=== PATIENT | male | born 1970 | race Caucasian/White ===

== ENCOUNTER 2016-11-05 10:16 | Inpatient (IN) | payer MEDICAID, OTHER ==
--- NOTE | 2016-11-05 10:14 | EDPHY ---
H & P Constitutional: Initial Vital Signs Temperature (C) 37.1 C 11/05/16 10:26 Heart Rate 75 11/05/16 10:26 Respiratory Rate 20 11/05/16 10:26 Blood Pressure 136/93 H 11/05/16 10:26 O2 Sat (%) 85 L 11/05/16 10:26 O2 Delivery Mode Room Air O2 (L/minute) 2 Allergies/Adverse Reactions: amlodipine Allergy (Verified 11/05/16 10:41) celecoxib Allergy (Verified 11/05/16 10:41) doxycycline Allergy (Verified 11/05/16 10:41) efavirenz Allergy (Verified 11/05/16 10:42) gabapentin Allergy (Verified 11/05/16 10:42) latex Allergy (Verified 11/05/16 10:41) nortriptyline Allergy (Verified 11/05/16 10:42) NSAIDS (Non-Steroidal Anti-Inflamma Allergy (Verified 11/05/16 10:42) oats Allergy (Verified 11/05/16 10:42) Penicillins Allergy (Verified 11/05/16 10:43) prednisone Allergy (Verified 11/05/16 10:43) prochlorperazine Allergy (Verified 11/05/16 10:43) ragweed pollen Allergy (Verified 11/05/16 10:43) Home Medications: Medication Instructions Recorded ALBUTEROL SULFATE 11/05/16 Abacavir-Lamivudine 600-300 mg 11/05/16 Ascorbic Acid 11/05/16 Atazanavir Sulfate 11/05/16 Atenolol 11/05/16 CHOLECALCIFEROL 11/05/16 Cortef 11/05/16 Coumadin 11/05/16 DIAZEPAM 11/05/16 Dulera 200 Mcg/5 Mcg Inhaler 11/05/16 FENOFIBRATE 11/05/16 FLUDROCORTISONE ACETATE 11/05/16 FOLIC ACID 11/05/16 Ferrous Sulfate 11/05/16 Flomax 11/05/16 Insulin NPH Human 11/05/16 Lasix 11/05/16 Lovenox 11/05/16 NOVOLIN N 11/05/16 Norvir 11/05/16 [place] 3 500 Softgel 11/05/16 Polyethylene Glycol/Polyvinyl 11/05/16 Potassium Chloride 11/05/16 Pravastatin Sodium 11/05/16 Roxicodone 11/05/16 SUMAtriptan 11/05/16 Spiriva Inhaler (RX) 11/05/16 Topamax 11/05/16 Tylenol 11/05/16 Zantac 11/05/16 Zofran Odt 11/05/16 Zoloft 100mg (*) 11/05/16 fentaNYL 11/05/16 Medical Decision Making ED Course/Re-evaluation: CHIEF COMPLAINT: Abdominal pain, cellulitis, bilateral leg swelling HISTORY OF PRESENT ILLNESS: This patient is a HIV+ immunocompromised ( hydrocortisone, glucocorticoids) 45 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 He presents with a growing area of erythema with associated burning pain across his abdomen over the past two weeks. He also complains of increasing swelling to both feet over the past month. He notes acute groin pain worse on the right side with associated hematuria over the past few days. He has not identified any alleviating factors for his complaints. He denies fever or chills. Medical history also includes CKD stage III, kidney stones, and prior episodes of cellulitis. He is on Coumadin for chronic DVTs. REVIEW OF SYSTEMS: A 10 point review of systems was performed and is negative with the exception of the elements mentioned in the history of present illness. PHYSICAL EXAM: HR 75, BP 136/93, O2 Sat 85, RR 20. Temp noted General Appearance: Alert, well hydrated, appropriate, and non-toxic appearing. Head: Atraumatic without scalp tenderness or obvious injury Eyes: Pupils equal, round, reactive to light and accommodation, EOMI, no trauma , no injection. Ears: Clear bilaterally, no perforation, normal landmarks Nose: Atraumatic, no rhinorrhea, clear. Throat: There is no erythema or exudates, no lesions, normal tonsils, mucus membranes moist. Neck: Supple, 2+ carotid upstroke, nontender, no lymphadenopathy. Respiratory: No retractions, no distress, no wheezes, and no accessory muscle use. Lungs are clear to auscultation bilaterally. Cardiovascular: Regular rate and rhythm, no murmurs, rubs, or gallops. Bilateral carotid, radial, dorsalis pedis, and posterior tibial pulses intact. Good capillary refill all extremities. Peripheral edema bilaterally. Gastrointestinal: Abdomen is soft, nontender, non-distended, no masses, no rebound, no guarding, no peritoneal signs. Musculoskeletal: Normal active ROM of all extremities, atraumatic. Neurological: Alert, appropriate, and interactive. The patient has normal DTRs and non-focal cranial nerves, motor, sensory, and cerebellar exam. Skin: Good turgor, no nodules on palpation. Cellulitic abdomen. Past medical history: Kidney stones, Reece's disease, HIV positive, diabetes, chronic kidney disease stage III, Frankfort's syndrome, chronic DVTs, thyroid disease, hypertension, asthma, seizure disorder Past surgical history: Appendectomy, brain surgery, hip replacement, knee surgery, ankle surgery, hand/elbow surgery Family history: Non-contributory Social history: Never smoked. Lives in [place]. DIFFERENTIAL DIAGNOSIS: The differential diagnosis for the patient's abdominal groin pain included but was not limited to appendicitis, cholecystitis, hernias , testicular torsion, gastritis, and urinary tract infection. MEDICAL DECISION MAKING: This immunocompromised 45 year old male presents with multiple complaints all of which will require further workup following hospital admission. He has a large area of cellulitis spreading diffusely across his abdomen with tenderness and erythema. He has worsening peripheral edema that "nobody has been able to figure out." He reports groin pain but denies pain to his flank, fever, or chills. He tells me that he had a CT of his abdomen two weeks ago. In investigating his history, it appears that his CT was conducted on 11/03, two days prior to arrival. Labs and UA from that day were obtained and reviewed as well. Given this, will not proceed with CT today. Will proceed with labs and UA. 2gm IV Ancef administered for cellulitis. 1119: Labs reviewed: Over-therapeutic on INR, elevated lactate, hypokalemic, normal kidney function, chronic anemia. UA reviewed: RBC present in urine. Will proceed with non-contrast CT of abdomen and pelvis. 1127: Consultation with hospitalist. Patient is accepted by Dr. Chu to med/ surg. 1154: CT is positive for kidney stone per Dr. Platt, radiology. - Data Points Laboratory Results: Laboratory Results 11/05/16 10:17 11/05/16 10:17 11/05/16 11/05/16 11/05/16 10:35 10:17 10:17 WBC RBC Hgb Hct MCV MCH MCHC RDW Plt Count MPV Neut % (Auto) Lymph % (Auto) Union % (Auto) Eos % (Auto) Baso % (Auto) Nucleat RBC Rel Count Absolute Neuts (auto) Absolute Lymphs (auto) Absolute Monos (auto) Absolute Eos (auto) Absolute Basos (auto) Absolute Nucleated RBC Immature Gran % Immature Gran # PT 43.7 SEC H SEC (12.0-15.0) INR 4.51 H (0.83-1.16) APTT 45.3 SEC H SEC (23.0-38.0) VBG Lactic Acid 3.4 mmol/L H mmol/L (0.7-2.1) Sodium 142 mEq/L mEq/L (134-144) Potassium 2.8 mEq/L L mEq/L (3.5-5.2) Chloride 100 mEq/L mEq/L (97-110) Carbon Dioxide 33 mEq/l H mEq/l (22-31) Anion Gap 9 mEq/L mEq/L (8-16) BUN 28 mg/dL H mg/dL (7-23) Creatinine 0.8 mg/dL mg/dL (0.7-1.3) Estimated GFR > 60 Glucose 260 mg/dL H mg/dL (70-100) Calcium 9.1 mg/dL mg/dL (8.5-10.4) Total Bilirubin 1.2 mg/dL mg/dL (0.1-1.4) Conjugated Bilirubin 0.4 mg/dL mg/dL (0.0-0.5) Unconjugated Bilirubin 0.8 mg/dL mg/dL (0.0-1.1) AST 33 IU/L IU/L (17-59) ALT 48 IU/L IU/L (21-72) Alkaline Phosphatase 130 IU/L H IU/L (38-126) Total Protein 6.1 g/dL L g/dL (6.3-8.2) Albumin 3.7 g/dL g/dL (3.5-5.0) Lipase 92.0 IU/L IU/L (23-300) Urine Color Urine Appearance Urine pH Ur Specific [place] Urine Protein Urine Ketones Urine Blood Urine Nitrate Urine Bilirubin Urine Urobilinogen Ur Leukocyte Esterase Urine RBC Urine WBC Ur Epithelial Cells Urine Glucose 11/05/16 11/05/16 10:17 10:10 WBC 4.80 10^3/uL 10^3/uL (3.80-9.50) RBC 3.53 10^6/uL L 10^6/uL (4.40-6.38) Hgb 11.0 g/dL L g/dL (13.7-17.5) Hct 32.8 % L % (40.0-51.0) MCV 92.9 fL fL (81.5-99.8) MCH 31.2 pg pg (27.9-34.1) MCHC 33.5 g/dL g/dL (32.4-36.7) RDW 15.6 % H % (11.5-15.2) Plt Count 101 10^3/uL L 10^3/uL (150-400) MPV 10.7 fL fL (8.7-11.7) Neut % (Auto) 86.6 % H % (39.3-74.2) Lymph % (Auto) 7.7 % L % (15.0-45.0) Union % (Auto) 4.0 % L % (4.5-13.0) Eos % (Auto) 0.0 % L % (0.6-7.6) Baso % (Auto) 0.0 % L % (0.3-1.7) Nucleat RBC Rel Count 0.0 % % (0.0-0.2) Absolute Neuts (auto) 4.16 10^3/uL 10^3/uL (1.70-6.50) Absolute Lymphs (auto) 0.37 10^3/uL L 10^3/uL (1.00-3.00) Absolute Monos (auto) 0.19 10^3/uL L 10^3/uL (0.30-0.80) Absolute Eos (auto) 0.00 10^3/uL L 10^3/uL (0.03-0.40) Absolute Basos (auto) 0.00 10^3/uL L 10^3/uL (0.02-0.10) Absolute Nucleated RBC 0.00 10^3/uL 10^3/uL (0-0.01) Immature Gran % 1.7 % H % (0.0-1.1) Immature Gran # 0.08 10^3/uL 10^3/uL (0.00-0.10) PT INR APTT VBG Lactic Acid Sodium Potassium Chloride Carbon Dioxide Anion Gap BUN Creatinine Estimated GFR Glucose Calcium Total Bilirubin Conjugated Bilirubin Unconjugated Bilirubin AST ALT Alkaline Phosphatase Total Protein Albumin Lipase Urine Color COLORLESS Urine Appearance CLEAR Urine pH 6.0 (5.0-7.5) Ur Specific [place] 1.005 (1.002-1.030) Urine Protein NEGATIVE (NEGATIVE) Urine Ketones NEGATIVE (NEGATIVE) Urine Blood 2+ H (NEGATIVE) Urine Nitrate NEGATIVE (NEGATIVE) Urine Bilirubin NEGATIVE (NEGATIVE) Urine Urobilinogen NEGATIVE EU EU (0.2-1.0) Ur Leukocyte Esterase NEGATIVE (NEGATIVE) Urine RBC 50-182 /hpf H /hpf (0-3) Urine WBC 3-5 /hpf H /hpf (0-3) Ur Epithelial Cells NONE SEEN /lpf /lpf (NONE-1+) Urine Glucose 1+ H (NEGATIVE) Medications Given: Discontinued Medications Hydromorphone HCl (Dilaudid) 1 mg IVP EDNOW ONE Stop: 11/05/16 10:29 Last Admin: 11/05/16 11:10 Dose: 1 mg Cefazolin Sodium/Dextrose (Ancef 2 Gm (Premix)) 100 mls @ 200 mls/hr IV EDNOW ONE PRN Reason: Protocol Stop: 11/05/16 11:04 Last Admin: 11/05/16 11:24 Dose: 200 mls Departure - Departure Disposition: [facility] In[facility] Acute Clinical Impression: Cellulitis, abdominal wall, Hypokalemia, Chronic anemia Condition: Fair Report Scribed for: Magdaleno Tinajero Report Scribed by: Italia Tolbert Date of Report: 11/05/16 Time of Report: 10:22
[2016-11-05] MEDS ORDERED: HYDROmorphONE/DILAUDID 1 MG/ML SYR IVP ONE (10:28)
[2016-11-05] MEDS ORDERED: ceFAZolin 2 GM/DEXTROSE 100 ML IV ONE (10:35)
[2016-11-05 10:56] LABS: % IMMATURE GRANULYOCYTES 1.7 % (0.0-1.1); ABSOLUTE IMMATURE GRANULOCYTES 0.08 10^3/uL (0.00-0.10); ADD DIFF? NO; ADD MORPH? NO; ADD SCAN? NO; ATYPICAL LYMPHOCYTE FLAG 0 (0-99); FRAGMENT RBC FLAG 0 (0-99); HEMATOCRIT 32.8 % (40.0-51.0); LEFT SHIFT FLG 30 (0-99); LIPEMIA HEMOLYSIS FLAG 80 (0-99); MEAN CELL HEMOGLOBIN 31.2 pg (27.9-34.1); MEAN CELL HEMOGLOBIN CONCENTR. 33.5 g/dL (32.4-36.7); MEAN CELL VOLUME 92.9 fL (81.5-99.8); MEAN PLATELET VOLUME 10.7 fL (8.7-11.7); PLATELET CLUMPS FLAG 0 (0-99); PLATELET COUNT 101 10^3/uL (150-400); RED BLOOD CELL COUNT 3.53 10^6/uL (4.40-6.38); RED CELL DISTRIBUTION WIDTH 15.6 % (11.5-15.2)
[2016-11-05 10:59] LABS: COLOR COLORLESS; LEUKOCYTE ESTERASE,URINE NEGATIVE (NEGATIVE); NITRITE,URINE NEGATIVE (NEGATIVE)
[2016-11-05 11:08] LABS: INR 4.51 (0.83-1.16); PROTIME(PATIENT) 43.7 SEC (12.0-15.0)
[2016-11-05 11:09] LABS: APTT 45.3 SEC (23.0-38.0)
[2016-11-05 11:09] LABS: RBC,URINE 50-182 /hpf (0-3)
[2016-11-05 11:11] LABS: ALANINE AMINOTRANSFERASE 48 IU/L (21-72); ALBUMIN 3.7 g/dL (3.5-5.0); ALKALINE PHOSPHATASE 130 IU/L (38-126); ANION GAP 9 mEq/L (8-16); ASPARTATE AMINOTRANSFERASE 33 IU/L (17-59); BILIRUBIN,TOTAL 1.2 mg/dL (0.1-1.4); BILIRUBIN-CONJUGATED 0.4 mg/dL (0.0-0.5); BILIRUBIN-UNCONJUGATED 0.8 mg/dL (0.0-1.1); CALCIUM 9.1 mg/dL (8.5-10.4); CARBON DIOXIDE 33 mEq/l (22-31); CHLORIDE 100 mEq/L (97-110); CREATININE 0.8 mg/dL (0.7-1.3); GLOMERULAR FILTRATION RATE > 60; GLUCOSE 260 mg/dL (70-100); POTASSIUM 2.8 mEq/L (3.5-5.2); SODIUM 142 mEq/L (134-144); TOTAL PROTEIN 6.1 g/dL (6.3-8.2)
[2016-11-05 11:48] LABS: LACGHOST ORDER
[2016-11-05] MEDS ORDERED: ONDANSETRON DISINTEGRATING 4 MG TAB PO PRN (13:51)
[2016-11-05] MEDS ORDERED: ACETAMINOPHEN 325 MG TAB PO PRN (13:51)
[2016-11-05] MEDS ORDERED: BISACODYL 10 MG SUPP PR PRN (13:51)
[2016-11-05] MEDS ORDERED: DEXAMETHASONE 4 MG/ML VIAL IM PRN ×2 (13:51→15:11)
[2016-11-05] MEDS ORDERED: SUMAtriptan 50 MG TAB PO PRN (13:51)
[2016-11-05] MEDS ORDERED: DIAZEPAM 5 MG TAB PO PRN (13:51)
[2016-11-05] MEDS ORDERED: HYOSCYAMINE SULFATE 0.125 MG TAB PO PRN (13:51)
[2016-11-05] MEDS ORDERED: DIAZEPAM PR PRN ×2 (13:51→15:11)
[2016-11-05] MEDS ORDERED: ALBUTEROL 60 PUFFS/8 GM MDI IH PRN (13:51)
[2016-11-05] MEDS ORDERED: ALBUTEROL 3 ML DEYVIAL IH PRN (13:51)
[2016-11-05] MEDS ORDERED: MAGNESIUM HYDROXIDE 30 ML UDCUP PO PRN (13:56)
[2016-11-05] MEDS ORDERED: ALBUTEROL 200 PUFFS/18 GM MDI IH PRN (14:24)
[2016-11-05] MEDS ORDERED: LIDO/EPI 1% **Not for Epidural 20 ML MDV IF ONE (14:30)
[2016-11-05] MEDS ORDERED: NS 1,000 ML IV ONE (15:10)
[2016-11-05] MEDS ORDERED: POTASSIUM CL 20 MEQ TAB PO ONE (15:14)
[2016-11-05] MEDS ORDERED: D50W 25 GM/50 ML SYR IVP PRN (15:26)
[2016-11-05] MEDS: oxyCODONE IR 5 MG TAB PO PRN (15:31)
--- NOTE | 2016-11-05 16:12 | CPEKG ---
Heart Rate: 65 RR Interval: 923 P-R Interval: 164 QRSD Interval: 86 QT Interval: 424 QTC Interval: 441 P Wheeler: 54 QRS Wheeler: 42 T Wave Wheeler: 66 EKG Severity - NORMAL ECG - EKG Impression: SINUS RHYTHM EKG Impression: INFERIOR Q WAVE IN LEAD III NOTED AND A NORMAL VARIANT Electronically Signed By: Venkat Pena 05-Nov-2016 18:51:26
--- NOTE | 2016-11-05 16:17 | GHP ---
[f rep st] HISTORY AND PHYSICAL DATE OF ADMISSION: 11/05/2016 CHIEF COMPLAINT: Multiple complaints. HISTORY OF PRESENT ILLNESS: This is a 45-year-old man with multiple medical problems who is immunos uppressed, who presents with multiple complaints. Abdominal cellulitis: This started a few days ago, described as painful burning. He has had chills at home for about the last month. It has been spreading quite rapidly. He tells me he has a histo ry of MRSA. He has had hematuria for about 3 weeks. He was recently admitted to [facility] and told th at he has urinary stones. He passed multiple of them. He was discharged to a SNF from there. He i s on Flomax. He presented to the ED with some pain in his abdomen, which also radiated to his groin . He has had lower extremity swelling. This started a few days before the stone issue. He has had no further evaluation for this, he tells me. He has also had an episode of chest pain. This is described as left-sided radiating to his arm with some associated numbness. He has never had this before. He still feels a mild amount of chest dis comfort. PAST MEDICAL/SURGICAL HISTORY: 1. HIV diagnosed in 2002. Last CD4 count was 121 with a negative viral load. 2. History of [place]'s disease, on chronic steroids. 3. Diabetes mellitus. 4. History of recurrent DVTs, on lifelong Coumadin. 5. PTSD. MEDICATIONS: Please see medication reconciliation. ALLERGIES: Multiple allergies, including amlodipine, celecoxib, doxycycline, Savarine, gabapentin, latex, nortriptyline, NSAIDs, oats, penicillin, prednisone, prochlorperazine and ragweed pollen. FAMILY HISTORY: He does not have Reece's in the family. SOCIAL HISTORY: He was discharged from [facility] about 2 weeks ago. He has been staying at a SNF since then. REVIEW OF SYSTEMS: A 10-point review of systems is conducted and is negative, except per HPI. PHYSICAL EXAMINATION: VITAL SIGNS: Blood pressure is 120/77, heart rate 68, respiration rate 18, s aturating 94% on 2 L, temperature is 36.7. GENERAL: The patient is a pleasant man, sitting in a wh eelchair, comfortable, in no acute distress. HEENT: Shows him to be normocephalic, atraumatic. CA RDIOVASCULAR: Regular rate and rhythm. No murmurs, rubs, or gallops. PULMONARY: Lungs clear to a uscultation bilaterally. ABDOMEN: Shows him to be soft, nontender, nondistended. SKIN: On his ab domen shows a large area of erythema over the right side of his abdomen. It is warm. It is quite i ndurated. I do not appreciate any fluctuance. It is very tender to palpation. : Shows no Gatica . NEUROLOGIC: Shows him to be alert and oriented x3. He has a nonfocal neurologic exam. PSYCHIAT HUSAM: Shows normal mood and affect. EXTREMITIES: Shows 3+ bilateral lower extremity pitting edema. LABS: Notable for sodium 142, potassium 2.8. Normal white count of 4, absolute lymphocytes are 0.3 7. INR is 4.5. Lactate 3.4. Urinalysis shows 50-182 red blood cells. DATA: 1. I reviewed his chart, including Dr. Tinajero's note. 2. I personally reviewed and interpreted his CTA that shows a calculus in the proximal to mid right ureter. IMPRESSION AND PLAN: This is a 45-year-old man with multiple acute and chronic issues. 1. Cellulitis in an immunocompromised man. History of methicillin resistant Staphylococcus aureus. Will provide him with vancomycin. I appreciate endurance, but no fluctuance. I do not think he n eeds surgical debridement at this time, though it may be necessary. I have consulted Infectious Dis ease as well. 2. Chest pain. He has multiple risk factors for coronary disease, though it is atypical. Will rul e him out with troponins, place him on telemetry, check an EKG as well as a chest x-ray. We will li jacques get a Lexiscan tomorrow. 3. Lower extremity edema, deserves an echocardiogram. Will also check LFTs. Will check lower extr emity ultrasounds to rule out DVT, though I note that he is supratherapeutic and think this unlikely . 4. Hematuria with right ureteral stone. Hematuria seems pretty significant. He does not seem to b e retaining urine at this point. We will continue Flomax, IV hydration and follow this clinically. Will involve Urology if hematuria does not improve. 5. Human immunodeficiency virus positive. Last CD4 was 121 with negative viral load. I will ask En Mccray, one of the Infectious Disease physicians to see him and assist with this as well as kaveh chen. 6. History of Reece's disease. Will continue steroids. 7. Diabetes mellitus. Will continue his NPH, check fingersticks and give him a sliding scale insul in protocol. 8. Lactic acidosis. Have written for him to get 1 L of fluid then will recheck his lactate. 9. Hypokalemia. Replete. 10. History of deep venous thrombosis with supratherapeutic INR. Will hold his warfarin samuel rodríguez recheck his INR tomorrow. 11. Code status is full. /[id number]/MODL
[2016-11-05] MEDS: VANCOMYCIN 1.5 GM in D5W 250 ML IV SCH (16:56)
[2016-11-05] MEDS ORDERED: HYDROCORTISONE 10 MG TAB PO ONE (17:30)
[2016-11-05] MEDS ORDERED: INSULIN NPH HUMAN 100 UNITS/ML SYRINGE SC SCH (18:00)
[2016-11-05] MEDS: PRAVASTATIN SODIUM 40 MG TAB PO SCH (18:02)
[2016-11-05] MEDS: INSULIN LISPRO 100 UNIT/ML SC SCH (18:03)
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
[2016-11-05] MEDS ORDERED: ATAZANAVIR SULFATE 300 MG PO SCH (21:00)
[2016-11-05] MEDS ORDERED: NON-FORMULARY NEW DRUG (Pravastatin Sodium [Pravastatin Sodium] 80 MG) PO SCH (21:00)
[2016-11-05] MEDS ORDERED: morphINE SR 30 MG TAB PO SCH (21:00)
[2016-11-05] MEDS ORDERED: ABACAVIR LAMIVUDINE PO SCH (21:00)
[2016-11-05] MEDS ORDERED: FENOFIBRATE 160 MG PO SCH (21:00)
[2016-11-05] MEDS ORDERED: NON-FORMULARY NEW DRUG (Ranitidine Hcl [Zantac] 300 MG) PO SCH (21:00)
[2016-11-05] MEDS ORDERED: PRAVASTATIN SODIUM 40 MG TAB PO SCH (21:00)
[2016-11-05] MEDS: SERTRALINE HCL 100 MG TAB PO SCH (21:29)
[2016-11-05] MEDS: FENOFIBRATE 145 MG TAB PO SCH (21:29)
[2016-11-05] MEDS: ATENOLOL 25 MG TAB PO SCH (21:29)
[2016-11-05] MEDS: FAMOTIDINE 20 MG TAB PO SCH (21:29)
[2016-11-05] MEDS: DIAZEPAM 5 MG TAB PO SCH (21:43)
[2016-11-05] MEDS: Mometasone/Formoterol [Dulera 200 Mcg/5 Mcg Inhaler] 2 PUFFS IH SCH (21:43)
[2016-11-06] MEDS: VANCOMYCIN 1.5 GM in D5W 250 ML IV SCH ×2 (04:29→16:12)
[2016-11-06 05:13] LABS: % IMMATURE GRANULYOCYTES 2.9 % (0.0-1.1); ABSOLUTE IMMATURE GRANULOCYTES 0.09 10^3/uL (0.00-0.10); ADD DIFF? NO; ADD MORPH? NO; ADD SCAN? NO; ATYPICAL LYMPHOCYTE FLAG 0 (0-99); FRAGMENT RBC FLAG 0 (0-99); HEMATOCRIT 26.3 % (40.0-51.0); HEMOGLOBIN 8.7 g/dL (13.7-17.5); LEFT SHIFT FLG 30 (0-99); LIPEMIA HEMOLYSIS FLAG 80 (0-99); MEAN CELL HEMOGLOBIN 31.5 pg (27.9-34.1); MEAN CELL HEMOGLOBIN CONCENTR. 33.1 g/dL (32.4-36.7); MEAN CELL VOLUME 95.3 fL (81.5-99.8); MEAN PLATELET VOLUME 10.4 fL (8.7-11.7); PLATELET CLUMPS FLAG 0 (0-99); PLATELET COUNT 73 10^3/uL (150-400); RED BLOOD CELL COUNT 2.76 10^6/uL (4.40-6.38); RED CELL DISTRIBUTION WIDTH 15.9 % (11.5-15.2)
[2016-11-06 05:57] LABS: INR 3.58 (0.83-1.16); PROTIME(PATIENT) 36.3 SEC (12.0-15.0)
[2016-11-06 06:23] LABS: ALANINE AMINOTRANSFERASE 43 IU/L (21-72); ALBUMIN 2.7 g/dL (3.5-5.0); ALKALINE PHOSPHATASE 86 IU/L (38-126); ANION GAP 3 mEq/L (8-16); ASPARTATE AMINOTRANSFERASE 22 IU/L (17-59); BILIRUBIN,TOTAL 0.5 mg/dL (0.1-1.4); CALCIUM 8.5 mg/dL (8.5-10.4); CARBON DIOXIDE 31 mEq/l (22-31); CHLORIDE 103 mEq/L (97-110); CREATININE 0.6 mg/dL (0.7-1.3); GLOMERULAR FILTRATION RATE > 60; GLUCOSE 275 mg/dL (70-100); POTASSIUM 3.5 mEq/L (3.5-5.2); SODIUM 137 mEq/L (134-144); TOTAL PROTEIN 4.7 g/dL (6.3-8.2)
[2016-11-06 06:33] LABS: TROPONIN I 0.025 ng/mL (0-0.034)
[2016-11-06] MEDS ORDERED: HYDROCORTISONE 15 MG PO SCH (08:00)
[2016-11-06] MEDS ORDERED: DIAZEPAM 5 MG TAB PO PRN (08:29)
[2016-11-06] MEDS ORDERED: ALBUTEROL 200 PUFFS/18 GM MDI IH PRN (08:45)
[2016-11-06] MEDS: INSULIN LISPRO 100 UNIT/ML SC SCH ×4 (08:49→17:58)
[2016-11-06] MEDS: INSULIN NPH HUMAN 100 UNITS/ML SYRINGE SC SCH ×3 (08:50→17:59)
[2016-11-06] MEDS: HYDROCORTISONE 10 MG TAB PO SCH ×3 (08:51→16:13)
[2016-11-06] MEDS: DIAZEPAM 5 MG TAB PO SCH ×3 (08:52→21:11)
[2016-11-06] MEDS: ATENOLOL 25 MG TAB PO SCH ×2 (08:52→21:11)
[2016-11-06] MEDS: FUROSEMIDE 40 MG TAB PO SCH (08:53)
[2016-11-06] MEDS: FLUDROCORTISONE ACETATE 0.1 MG TAB PO SCH (08:53)
[2016-11-06] MEDS: TAMSULOSIN HCL 0.4 MG CAP PO SCH (08:54)
[2016-11-06] MEDS: FERROUS SULFATE 325 MG TAB PO SCH (08:54)
[2016-11-06] MEDS: ASCORBIC ACID 500 MG TAB PO SCH (08:54)
[2016-11-06] MEDS ORDERED: HYDROCORTISONE PO SCH (09:00)
[2016-11-06] MEDS ORDERED: TIOTROPIUM INHALER 18 MCG/DOSE 5 DOSE/MDI IH SCH (09:00)
[2016-11-06] MEDS ORDERED: RITONAVIR 100 MG TAB PO SCH (09:00)
[2016-11-06] MEDS ORDERED: TRIUMEQ PO SCH (09:00)
[2016-11-06] MEDS ORDERED: POTASSIUM CL 10 MEQ TAB PO SCH (09:00)
--- NOTE | 2016-11-06 09:43 | HOSPPROG ---
Hospitalist Progress Note Assessment/Plan: # abd wall cellulitis - vanc per ID, appreciate assistance # LE edema - echo pending - cont lasix # chest pain - Joy today # hematuria, non-obstructive renal stone - no evidence of CASAS # DVT, on warfarin, supratherapeutic INR: he relates that he was off warfarin recently for unknown reason - cont to hold warfarin # HIV - ID changing regimen # allen's - cont steroids, no evidence of crisis # DM2, hyperglycemic - increase nocturnal NPH # lactic acidosis - resolved Subjective: abd feels better; less hematuria today; edema slightly better Objective: Vital Signs Temp Pulse Resp BP Pulse Ox 36.9 C 56 L 20 128/79 H 97 11/06/16 07:38 11/06/16 07:38 11/06/16 07:38 11/06/16 07:38 11/06/16 07:38 Laboratory Results 11/06/16 04:29 11/06/16 04:29 11/05/16 11/06/16 11/07/16 05:59 05:59 05:59 Intake Total 480 Output Total 1050 Balance -570 PT 36.3 SEC (12.0-15.0) H 11/06/16 04:29 INR 3.58 (0.83-1.16) H 11/06/16 04:29 chart reviewed - appreciate Dr Mccray's consult LE US reviewed - Physical Exam Constitutional: chronically ill appearing Cardiovascular: regular rate and rhythym, no murmur, rub, or gallop Respiratory: no respiratory distress, no rales or rhonchi, clear to auscultation Gastrointestinal: normoactive bowel sounds, soft, non-tender abdomen, no palpable masses Skin: other (erythema on abd less red (pink today), still warm but better; less induration) ICD10 Worksheet Patient Problems: Problems Problem Status Onset Cellulitis, abdominal wall Acute Hypokalemia Acute Chronic anemia Acute
[2016-11-06] MEDS: Mometasone/Formoterol [Dulera 200 Mcg/5 Mcg Inhaler] 2 PUFFS IH SCH (10:11)
[2016-11-06] MEDS: POLYETHYLENE GLYCOL 3350 17 GM PKT PO SCH (10:20)
--- NOTE | 2016-11-06 10:41 | ECHO ---
[id number] + + [address] : : [place] [address] : : [phone] + Adult Echocardiographic Report + -------+ :Name: JONO MARTIN RStudy Date: 11/06/2016 08:14 AM : : Hospital Admission Number: [id number] Locati on: 390: :: 1970 Gender: Male Height: 677 in : :Age: 45 yrs Race: WH Weight: 227 lb : :Reason For Study: edema : : BSA: 11.4 mete rs2 : :History: edema : + -------+ MMode/2D Measurements \T\ Calculations IVSd: 1.3 cm RVDd: 2.8 cm FS: 47.2 % Ao root diam: LVPWd: 1.4 cm LVIDd: 4.4 cm EDV(Teich): 3.9 cm LVIDs: 2.3 cm 88.2 ml LA dimension: ESV(Teich): 4.2 cm 18.7 ml EF(Teich): 78.8 % LVLd ap4: 10.2 cm SV(MOD-sp4): EDV(MOD-sp4): 122.0 ml 162.0 ml LVLs ap4: 8.5 cm ESV(MOD-sp4): 40.0 ml EF(MOD-sp4): 75.3 % Normal Measurement Values: + + :LVIDd (3.5-5.7cm) IVSd (0.6-1.1cm) LVPWd (0.6-1.1cm) Aortic Root (2.0-3.7cm)Left Atrium (1.5-4.0cm): :LV Vol(d) (76-115ml) LV Vol(s) (29-48ml) Ejec Fraction (50-65%)PV Yonathan (0.6- 1.2m/s) TV Yonathan (0.4-1.0m/s) : :MV E Yonathan (0.8-1.0m/s)MV A Yonathan (0.3-1.0m/s)LVOT Yonathan (0.7-1.2m/s) Asc Ao Yonathan ( 0.9-1.8m/s) : + + Doppler Measurements \T\ Calculations MV E max yonathan: Ao V2 max: LV V1 max: PA V2 max: 66.1 cm/sec 138.8 cm/sec 121.9 cm/sec 92.3 cm/sec MV A max yonathan: Ao max P.7 mmHgLV V1 max PG: PA max P.9 cm/sec 5.9 mmHg 3.4 mmHg MV E/A: 1.5 MV dec time: 0.26 sec Left Ventricle The left ventricle is normal in size and function. There is mild concentric left ventricular hypertrophy. Ejection Fraction = 70-75%. Assessment of diastolic function is equivocal. No regional wall motion abnormalities noted. Right Ventricle The right ventricle is normal in size and function. Atria The left atrial size is normal. Right atrial size is normal. Mitral Valve The mitral valve is normal in structure and function. There is no mitral valve stenosis. There is trace mitral regurgitation. Tricuspid Valve The tricuspid valve is normal in structure and function. There is no tricuspid stenosis. There is trace tricuspid regurgitation. Aortic Valve The aortic valve is trileaflet. Mild Aortic Valve Calcification. There is no aortic stenosis. There is no aortic insufficiency. Pulmonic Valve The pulmonic valve is not well visualized. Great Vessels The aortic root is normal size. Pericardium/Pleural There is no pericardial effusion. There is a fat pad seen. Conclusion A two-dimensional transthoracic echocardiogram with M-mode and Doppler was performed. There is mild concentric left ventricular hypertrophy. The left ventricle is normal in size and function. Ejection Fraction = 70-75%. There is trace mitral regurgitation. There is trace tricuspid regurgitation. No prior echo Final Reading Physician: Dr Iram De Los Santos electronically signed on 11/06/2016 10:39 AM Ordering Physician: Ramón Chu Performed By: Dai Lindsey
[2016-11-06] MEDS ORDERED: REGADENOSON 0.4 MG/5 ML SYR IVP ONE (11:56)
--- NOTE | 2016-11-06 12:40 | CPR ---
[f rep st] NONINVASIVE CARDIAC PROCEDURE REPORT DATE OF PROCEDURE: 11/06/2016 PROCEDURE PERFORMED: Lexiscan nuclear stress test. ORDERING PHYSICIAN: Ramón Chu MD, hospitalist. REASON FOR TEST: Chest discomfort. PROCEDURE: Resting EKG shows a regular sinus rhythm with a rate of 65. No ischemic changes. No ar rhythmias noted. Resting blood pressure 124/82, oxygen saturation 94%, heart rate 64. Lexiscan portion: Lexiscan was injected rapidly, followed by saline flush. Cardiolite was then inj ected, followed by saline flush. Peak heart rate 87, blood pressure 110/80, oxygen saturation 93%. He had flushing sensation after the injection. There were no EKG changes. Recovery: He spontaneously recovered. Flushing subsided. Resting EKG remained stable with no isch emic changes or arrhythmias. Resting blood pressure 126/80, resting heart rate 87, oxygen saturatio n 98%. At this time, he currently is stable for nuclear imaging. /[id number]/MODL
[2016-11-06] MEDS: FAMOTIDINE 20 MG TAB PO SCH ×2 (13:36→21:11)
[2016-11-06] MEDS: FLUCONAZOLE 100 MG TAB PO SCH (13:36)
[2016-11-06] MEDS: ONDANSETRON 4 MG/2 ML VIAL IVP PRN (14:51)
[2016-11-06] MEDS: TRIUMEQ PO SCH ×3 (15:28→16:31)
--- NOTE | 2016-11-06 17:04 | PCMIDPN ---
Assessment/Plan: Assessment/Plan: * Abdominal wall cellulitis: Clinically improved today with less intense erythema (reviewed with Dr. Chu who saw patient both today and yesterday). 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 Anticipate slow resolution with concomitant obesity. Will assess vancomycin trough. * HIV: Will modify current treatment regimen of epzicom and boosted atazanavir to triumeq (epzicom + tivicay) given potential for nephrolithiasis with atazanavir. Counseling regarding new regimen provided by myself and Hannah De La Rosa NP. * DVT: Management by hospitalist service. * Nephrolithiasis: See above discussion. 11/06/16 17:00 11/06/16 17:05 11/06/16 17:05 Subjective: Patient with less abdominal wall tenderness. Objective: Vital Signs Temp Pulse Resp BP Pulse Ox 37.2 C 72 16 141/81 H 93 11/06/16 16:00 11/06/16 16:00 11/06/16 16:00 11/06/16 16:00 11/06/16 16:00 Laboratory Results 11/06/16 04:29 11/06/16 04:29 11/05/16 11/06/16 11/07/16 05:59 05:59 05:59 Intake Total 480 Output Total 1050 1000 Balance -570 -1000 Vancomycin # 2 Blood cultures x2 no growth to date - Physical Exam General Appearance: alert, no apparent distress EENT: No scleral icterus, No thrush Respiratory: lungs clear, No respiratory distress Cardiac/Chest: regular rate, rhythm Extremities: pedal edema (2+ right) Abdomen: other (Faint erythema with warmth and mild tenderness along right lower quadrant abdominal wall; 2 hemorrhagic foci 1 of which is lateral in 1 medial; no fluctuance; mild induration superiorly) Skin: No embolic lesions ICD10 Worksheet Patient Problems: Problems Problem Status Onset Cellulitis, abdominal wall Acute Chronic anemia Acute Hypokalemia Acute
[2016-11-06] MEDS: PRAVASTATIN SODIUM 40 MG TAB PO SCH ×2 (17:45→17:59)
[2016-11-06] MEDS: CALCIUM CARB W/VIT D 500 MG TAB PO SCH (21:10)
[2016-11-06] MEDS: SERTRALINE HCL 100 MG TAB PO SCH (21:10)
[2016-11-06] MEDS: FENOFIBRATE 145 MG TAB PO SCH (21:10)
[2016-11-07 03:51] LABS: ADD DIFF? YES; ADD MORPH? NO; ADD SCAN? NO; ATYPICAL LYMPHOCYTE FLAG 30 (0-99); FRAGMENT RBC FLAG 0 (0-99); HEMATOCRIT 28.8 % (40.0-51.0); HEMOGLOBIN 9.8 g/dL (13.7-17.5); LEFT SHIFT FLG 40 (0-99); LIPEMIA HEMOLYSIS FLAG 90 (0-99); MEAN CELL HEMOGLOBIN 31.7 pg (27.9-34.1); MEAN CELL VOLUME 93.2 fL (81.5-99.8); MEAN PLATELET VOLUME 10.2 fL (8.7-11.7); PLATELET CLUMPS FLAG 0 (0-99); PLATELET COUNT 77 10^3/uL (150-400); RED BLOOD CELL COUNT 3.09 10^6/uL (4.40-6.38); RED CELL DISTRIBUTION WIDTH 15.9 % (11.5-15.2)
[2016-11-07 03:59] LABS: INR 1.84 (0.83-1.16); PROTIME(PATIENT) 21.3 SEC (12.0-15.0)
[2016-11-07 04:06] LABS: ANION GAP 4 mEq/L (8-16); CALCIUM 8.7 mg/dL (8.5-10.4); CARBON DIOXIDE 31 mEq/l (22-31); CHLORIDE 106 mEq/L (97-110); CREATININE 0.7 mg/dL (0.7-1.3); GLOMERULAR FILTRATION RATE > 60; GLUCOSE 127 mg/dL (70-100); SODIUM 141 mEq/L (134-144)
[2016-11-07 04:35] LABS: PLATELET ESTIMATE DECREASED (ADEQ)
[2016-11-07] MEDS: VANCOMYCIN 1.5 GM in D5W 250 ML IV SCH ×2 (04:36→16:55)
[2016-11-07 04:41] LABS: MACROCYTES 1+; MICROCYTES 1+
[2016-11-07] MEDS ORDERED: POTASSIUM CL 20 MEQ TAB PO ONE (05:42)
[2016-11-07] MEDS: INSULIN LISPRO 100 UNIT/ML SC SCH ×3 (07:42→19:11)
[2016-11-07] MEDS: ASCORBIC ACID 500 MG TAB PO SCH (08:53)
[2016-11-07] MEDS: CALCIUM CARB W/VIT D 500 MG TAB PO SCH ×2 (08:53→21:21)
[2016-11-07] MEDS: FAMOTIDINE 20 MG TAB PO SCH ×2 (08:53→21:21)
[2016-11-07] MEDS: TAMSULOSIN HCL 0.4 MG CAP PO SCH (08:54)
[2016-11-07] MEDS: ATENOLOL 25 MG TAB PO SCH ×2 (08:54→21:21)
[2016-11-07] MEDS: FLUCONAZOLE 100 MG TAB PO SCH (08:54)
[2016-11-07] MEDS: DIAZEPAM 5 MG TAB PO SCH ×3 (08:54→21:22)
[2016-11-07] MEDS: FERROUS SULFATE 325 MG TAB PO SCH (08:54)
[2016-11-07] MEDS: HYDROCORTISONE 10 MG TAB PO SCH ×3 (08:56→16:55)
[2016-11-07] MEDS: FLUDROCORTISONE ACETATE 0.1 MG TAB PO SCH (08:58)
[2016-11-07] MEDS ORDERED: POTASSIUM CL 10 MEQ TAB PO SCH (09:00)
[2016-11-07] MEDS: INSULIN NPH HUMAN 100 UNITS/ML SYRINGE SC SCH ×2 (09:03→17:54)
[2016-11-07] MEDS: POLYETHYLENE GLYCOL 3350 17 GM PKT PO SCH (09:52)
[2016-11-07] MEDS: FUROSEMIDE 40 MG TAB PO SCH (11:56)
--- NOTE | 2016-11-07 13:57 | HOSPPROG ---
Hospitalist Progress Note Assessment/Plan: # abd wall cellulitis - has a hx of MRSA - vanc per ID, appreciate assistance # LE edema - echo ok; improving with lasix - cont lasix # hypokalemia - increase klor-con # chest pain - teddy negative # hematuria, non-obstructive renal stone - hematuria resolved # DVT, on warfarin, INR slightly low: he relates that he was off warfarin recently for unknown reason - restart warfarin tonight # mild thrombocytopenia - recheck tomorrow # HIV - ID changing regimen # allen's - cont steroids, no evidence of crisis # DM2, hyperglycemic - nocturnal NPH increased, glucs better # lactic acidosis - resolved Subjective: no hematuria; abd less tender; swelling better Objective: Vital Signs Temp Pulse Resp BP Pulse Ox 36.8 C 62 16 105/65 93 11/07/16 11:20 11/07/16 11:20 11/07/16 11:20 11/07/16 11:20 11/07/16 11:20 Laboratory Results 11/07/16 03:40 11/07/16 03:40 11/06/16 11/07/16 11/08/16 05:59 05:59 05:59 Intake Total 480 Output Total 1050 2600 475 Balance -570 -2600 -475 PT 21.3 SEC (12.0-15.0) H D 11/07/16 03:40 INR 1.84 (0.83-1.16) H 11/07/16 03:40 - Physical Exam Constitutional: no apparent distress, appears nourished, obese, No unkempt Cardiovascular: regular rate and rhythym, no murmur, rub, or gallop Respiratory: no respiratory distress, no rales or rhonchi, clear to auscultation Gastrointestinal: normoactive bowel sounds, other (R lower abd erythema/warmth better, still TTP) ICD10 Worksheet Patient Problems: Problems Problem Status Onset Cellulitis, abdominal wall Acute Hypokalemia Acute Chronic anemia Acute
--- NOTE | 2016-11-07 16:05 | PCMIDPN ---
Assessment/Plan: Assessment/Plan: * Abdominal wall cellulitis: Continued decrease in intensity of erythema which is now more dependent along lateral abdominal wall. No focal fluctuance although some areas of induration along striae which may represent panniculitis. Continue vancomycin. Trough appropriate with stable renal function. * HIV: Continue Triumeq. Initial dose tolerated well. * DVT: Management by hospitalist service. * Nephrolithiasis: Anti-retroviral therapy modified given risk for nephrolithiasis with atazanavir. 11/07/16 16:02 Subjective: Patient complains of right-sided abdominal wall pain. Did not have any issues taking Triumeq. Objective: Vital Signs Temp Pulse Resp BP Pulse Ox 37.2 C 66 14 114/85 H 94 11/07/16 14:53 11/07/16 14:53 11/07/16 14:53 11/07/16 14:53 11/07/16 14:53 Laboratory Results 11/07/16 03:40 11/07/16 03:40 11/06/16 11/07/16 11/08/16 05:59 05:59 05:59 Intake Total 480 Output Total 1050 2600 4015 Balance -922 -2602 -5058 Vancomycin # 3 Blood cultures x2 no growth Laboratory Tests 11/07/16 03:40 Vancomycin Trough 11.8 - Physical Exam General Appearance: alert, no apparent distress, obese EENT: No thrush Cardiac/Chest: regular rate, rhythm Abdomen: tender (Right lower abdominal wall with faint erythema, warmth and tenderness with scattered hemorrhagic foci; abdominal striae with some focal areas of induration; erythema most intense laterally where dependent from lying on his side) ICD10 Worksheet Patient Problems: Problems Problem Status Onset Cellulitis, abdominal wall Acute Chronic anemia Acute Hypokalemia Acute
[2016-11-07] MEDS: WARFARIN SODIUM 5 MG TAB PO SCH (16:54)
[2016-11-07] MEDS: PRAVASTATIN SODIUM 40 MG TAB PO SCH (17:53)
[2016-11-07] MEDS: TRIUMEQ PO SCH (17:55)
[2016-11-07] MEDS: FENOFIBRATE 145 MG TAB PO SCH (21:21)
[2016-11-07] MEDS: SERTRALINE HCL 100 MG TAB PO SCH (21:21)
[2016-11-07] MEDS: ONDANSETRON 4 MG/2 ML VIAL IVP PRN (21:30)
[2016-11-08] MEDS: VANCOMYCIN 1.5 GM in D5W 250 ML IV SCH ×2 (04:02→15:59)
[2016-11-08 05:04] LABS: % IMMATURE GRANULYOCYTES 2.9 % (0.0-1.1); ABSOLUTE IMMATURE GRANULOCYTES 0.11 10^3/uL (0.00-0.10); ADD DIFF? NO; ADD MORPH? NO; ADD SCAN? NO; ATYPICAL LYMPHOCYTE FLAG 0 (0-99); FRAGMENT RBC FLAG 0 (0-99); HEMATOCRIT 31.7 % (40.0-51.0); HEMOGLOBIN 10.7 g/dL (13.7-17.5); LEFT SHIFT FLG 30 (0-99); LIPEMIA HEMOLYSIS FLAG 90 (0-99); MEAN CELL HEMOGLOBIN 31.3 pg (27.9-34.1); MEAN CELL HEMOGLOBIN CONCENTR. 33.8 g/dL (32.4-36.7); MEAN CELL VOLUME 92.7 fL (81.5-99.8); MEAN PLATELET VOLUME 9.7 fL (8.7-11.7); PLATELET CLUMPS FLAG 0 (0-99); PLATELET COUNT 95 10^3/uL (150-400); RED BLOOD CELL COUNT 3.42 10^6/uL (4.40-6.38); RED CELL DISTRIBUTION WIDTH 16.1 % (11.5-15.2)
[2016-11-08 05:24] LABS: INR 1.34 (0.83-1.16); PROTIME(PATIENT) 16.6 SEC (12.0-15.0)
[2016-11-08 05:26] LABS: ANION GAP 7 mEq/L (8-16); CALCIUM 8.9 mg/dL (8.5-10.4); CARBON DIOXIDE 30 mEq/l (22-31); CHLORIDE 105 mEq/L (97-110); CREATININE 0.9 mg/dL (0.7-1.3); GLOMERULAR FILTRATION RATE > 60; GLUCOSE 148 mg/dL (70-100); POTASSIUM 2.8 mEq/L (3.5-5.2); SODIUM 142 mEq/L (134-144)
[2016-11-08] MEDS ORDERED: POTASSIUM CL 20 MEQ TAB PO ONE (06:34)
[2016-11-08] MEDS ORDERED: PROTOCOL POTASSIUM 1 DOSE MISC PRN (06:43)
[2016-11-08] MEDS: INSULIN LISPRO 100 UNIT/ML SC SCH ×3 (07:52→16:17)
--- NOTE | 2016-11-08 08:51 | HOSPPROG ---
Hospitalist Progress Note Assessment/Plan: # abd wall cellulitis - has a hx of MRSA; overall improving - vanc per ID, appreciate assistance; vanc trough ok - high risk med needing monitoring # LE edema - echo ok; much better - decrease lasix to 20 daily # hypokalemia - increase klor-con again today; lasix decreased # chest pain - teddy negative # hematuria, non-obstructive renal stone - hematuria resolved # DVT, on warfarin, INR low: - start lovenox (plts noted), cont warf # mild thrombocytopenia - recheck tomorrow # HIV - ID changing regimen # allen's - cont steroids, no evidence of crisis # DM2, hyperglycemic - nocturnal NPH increased, glucs better # lactic acidosis - resolved Subjective: tired this morning; pain on abd better; swelling better Objective: Vital Signs Temp Pulse Resp BP Pulse Ox 37.1 C 71 16 106/63 93 11/08/16 07:27 11/08/16 07:27 11/08/16 07:27 11/08/16 07:27 11/08/16 07:27 Laboratory Results 11/08/16 04:30 11/08/16 04:30 11/07/16 11/08/16 11/09/16 05:59 05:59 05:59 Intake Total 940 Output Total 2600 4125 425 Balance -2600 -3185 -425 PT 16.6 SEC (12.0-15.0) H 11/08/16 04:30 INR 1.34 (0.83-1.16) H 11/08/16 04:30 - Physical Exam Constitutional: obese Cardiovascular: regular rate and rhythym, no murmur, rub, or gallop Respiratory: no respiratory distress, no rales or rhonchi, clear to auscultation Gastrointestinal: normoactive bowel sounds, other (erythema better; slightly TTP ), No ascites, No guarding, No rebound, No distension ICD10 Worksheet Patient Problems: Problems Problem Status Onset Cellulitis, abdominal wall Acute Hypokalemia Acute Chronic anemia Acute
[2016-11-08] MEDS: ASCORBIC ACID 500 MG TAB PO SCH (09:08)
[2016-11-08] MEDS: POTASSIUM CL 10 MEQ TAB PO SCH ×2 (09:09→21:38)
[2016-11-08] MEDS: CALCIUM CARB W/VIT D 500 MG TAB PO SCH ×2 (09:09→21:36)
[2016-11-08] MEDS: ATENOLOL 25 MG TAB PO SCH (09:09)
[2016-11-08] MEDS: POLYETHYLENE GLYCOL 3350 17 GM PKT PO SCH (09:10)
[2016-11-08] MEDS: TAMSULOSIN HCL 0.4 MG CAP PO SCH (09:11)
[2016-11-08] MEDS: HYDROCORTISONE 10 MG TAB PO SCH ×3 (09:11→15:59)
[2016-11-08] MEDS: FERROUS SULFATE 325 MG TAB PO SCH (09:13)
[2016-11-08] MEDS: FLUCONAZOLE 100 MG TAB PO SCH (09:13)
[2016-11-08] MEDS: FAMOTIDINE 20 MG TAB PO SCH ×2 (09:13→21:36)
[2016-11-08] MEDS: FUROSEMIDE 40 MG TAB PO SCH (09:13)
[2016-11-08] MEDS: FLUDROCORTISONE ACETATE 0.1 MG TAB PO SCH (09:13)
[2016-11-08] MEDS: DIAZEPAM 5 MG TAB PO SCH ×3 (09:13→21:36)
[2016-11-08] MEDS: ENOXAPARIN 100 MG/ML SYR SC SCH ×2 (09:20→21:39)
[2016-11-08] MEDS: INSULIN NPH HUMAN 100 UNITS/ML SYRINGE SC SCH ×2 (09:22→17:50)
[2016-11-08] MEDS: oxyCODONE IR 5 MG TAB PO PRN ×2 (09:38→21:37)
[2016-11-08 10:02] LABS: POTASSIUM 2.8 mEq/L (3.5-5.2)
[2016-11-08 15:12] LABS: POTASSIUM 3.4 mEq/L (3.5-5.2)
[2016-11-08] MEDS: TRIUMEQ PO SCH (15:59)
[2016-11-08] MEDS: WARFARIN SODIUM 5 MG TAB PO SCH (16:01)
--- NOTE | 2016-11-08 17:26 | PCMIDPN ---
Assessment/Plan: Assessment: 1. Abdominal wall cellulitis. Erythema seems to have regressed substantially around the scarring areas of the right lower quadrant. It is seemed to regress to a point that is tender and warm and possibly fluctuant. I think it would be reasonable to ultrasound the area to see if there is a drainable collection. If so we will obtain general surgery consult. 2. HIV. Regimen changed to couple of days ago. Patient is tolerating currently. Plan: 1. Continue IV vancomycin. 2. Ultrasound right lower quadrant of abdomen to evaluate for subcutaneous collection needing drainage. 11/08/16 18:35 Subjective: Patient is resting comfortably in his hospital bed. He complains of point tenderness in the right lower quadrant associated with subcutaneous inflammation and tension. Tolerating vancomycin well. No fevers or chills. Objective: Vancomycin # 4 Vital Signs Temp Pulse Resp BP Pulse Ox 36.9 C 75 14 117/73 93 11/08/16 16:00 11/08/16 16:00 11/08/16 16:00 11/08/16 16:00 11/08/16 16:00 Laboratory Results 11/08/16 04:30 11/08/16 14:32 11/07/16 11/08/16 11/09/16 05:59 05:59 05:59 Intake Total 940 Output Total 3608 1111 624 Balance -260 -3972 -850 - Physical Exam General Appearance: WD/WN, alert, obese, non-toxic Respiratory: lungs clear, normal breath sounds, No respiratory distress Cardiac/Chest: regular rate, rhythm, No tachycardia Abdomen: soft, other (Point area of redness, induration and fluctuance right lower quadrant), No non-tender, No rebound, No mass Skin: normal color, warm/dry, No rash Neuro/Psych: alert, normal mood/affect, oriented x 3 ICD10 Worksheet Patient Problems: Problems Problem Status Onset Cellulitis, abdominal wall Acute Chronic anemia Acute Hypokalemia Acute
[2016-11-08] MEDS: PRAVASTATIN SODIUM 40 MG TAB PO SCH (17:49)
[2016-11-08] MEDS ORDERED: POTASSIUM CL 10 MEQ TAB PO ONE (20:31)
[2016-11-08] MEDS: FENOFIBRATE 145 MG TAB PO SCH (21:36)
[2016-11-08] MEDS: SERTRALINE HCL 100 MG TAB PO SCH (21:37)
[2016-11-08] MEDS: ONDANSETRON DISINTEGRATING 4 MG TAB PO PRN (21:39)
[2016-11-09] MEDS: ATENOLOL 25 MG TAB PO SCH ×3 (01:55→20:24)
[2016-11-09] MEDS: ONDANSETRON DISINTEGRATING 4 MG TAB PO PRN ×2 (04:18→08:24)
[2016-11-09] MEDS: VANCOMYCIN 1.5 GM in D5W 250 ML IV SCH ×2 (04:18→18:25)
[2016-11-09] MEDS: oxyCODONE IR 5 MG TAB PO PRN ×4 (04:19→20:25)
[2016-11-09 05:23] LABS: HEMATOCRIT 30.5 % (40.0-51.0); MEAN CELL HEMOGLOBIN CONCENTR. 32.8 g/dL (32.4-36.7); MEAN CELL VOLUME 94.4 fL (81.5-99.8); RED BLOOD CELL COUNT 3.23 10^6/uL (4.40-6.38); RED CELL DISTRIBUTION WIDTH 16.2 % (11.5-15.2)
[2016-11-09 05:44] LABS: INR 1.88 (0.83-1.16); PROTIME(PATIENT) 21.7 SEC (12.0-15.0)
[2016-11-09 06:37] LABS: ANION GAP 4 mEq/L (8-16); CALCIUM 8.8 mg/dL (8.5-10.4); CARBON DIOXIDE 26 mEq/l (22-31); CHLORIDE 109 mEq/L (97-110); CREATININE 1.2 mg/dL (0.7-1.3); GLOMERULAR FILTRATION RATE > 60; GLUCOSE 117 mg/dL (70-100); POTASSIUM 3.5 mEq/L (3.5-5.2); SODIUM 139 mEq/L (134-144)
[2016-11-09] MEDS ORDERED: POTASSIUM CL 10 MEQ TAB PO ONE (08:34)
--- NOTE | 2016-11-09 08:53 | HOSPPROG ---
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 Abdominal wall cellulitis/abscess, planned I&D today. Hematuria and nonobstructive renal stone, hematuria resolved with lowering his INR. Lower extremity edema, significantly improved with Lasix. Possible discharge tomorrow. # abd wall abscess/cellulitis - has a hx of MRSA; overall improving - vanc per ID, appreciate assistance - discussed with Dr Coronado - he will eval for I&D today # LE edema - echo ok; much better - decrease lasix to 20mg PO daily # hypokalemia - better today with lower lasix dose and increased klor-con - cont Kcl 20 bid - recheck tomorrow # chest pain - teddy negative # hematuria, non-obstructive renal stone - hematuria resolved - outpatient urology f/u # DVT, on warfarin slightly subtherapeuric INR - cont warfarin - hold lovenox today # mild thrombocytopenia - recheck tomorrow # HIV - ID changed regimen # allen's - cont steroids, no evidence of crisis # DM2, hyperglycemic - nocturnal NPH increased, glucs better # lactic acidosis - resolved Subjective: edema much better; abd better but still TTP Objective: Vital Signs Temp Pulse Resp BP Pulse Ox 36.7 C 78 18 97/57 L 95 11/09/16 08:00 11/09/16 08:00 11/09/16 08:00 11/09/16 08:00 11/09/16 08:00 Laboratory Results 11/09/16 05:01 11/09/16 05:01 11/08/16 11/09/16 11/10/16 05:59 05:59 05:59 Intake Total 940 800 Output Total 4125 1400 Balance -3185 -600 PT 21.7 SEC (12.0-15.0) H 11/09/16 05:01 INR 1.88 (0.83-1.16) H 11/09/16 05:01 abd ultrasound reviewed - Physical Exam Constitutional: no apparent distress, appears nourished Cardiovascular: regular rate and rhythym, no murmur, rub, or gallop Respiratory: no respiratory distress, no rales or rhonchi, clear to auscultation Gastrointestinal: normoactive bowel sounds, soft, non-tender abdomen, other (R abd with small mildly fluctuant nodules) ICD10 Worksheet Patient Problems: Problems Problem Status Onset Cellulitis, abdominal wall Acute Hypokalemia Acute Chronic anemia Acute
[2016-11-09] MEDS: HYDROCORTISONE 10 MG TAB PO SCH ×3 (09:46→18:25)
[2016-11-09] MEDS: FLUCONAZOLE 100 MG TAB PO SCH (09:47)
[2016-11-09] MEDS: FERROUS SULFATE 325 MG TAB PO SCH (09:47)
[2016-11-09] MEDS: FAMOTIDINE 20 MG TAB PO SCH ×2 (09:48→20:24)
[2016-11-09] MEDS: TAMSULOSIN HCL 0.4 MG CAP PO SCH (09:48)
[2016-11-09] MEDS: FUROSEMIDE 40 MG TAB PO SCH (09:49)
[2016-11-09] MEDS: FLUDROCORTISONE ACETATE 0.1 MG TAB PO SCH (09:49)
[2016-11-09] MEDS: CALCIUM CARB W/VIT D 500 MG TAB PO SCH (09:50)
[2016-11-09] MEDS: DIAZEPAM 5 MG TAB PO SCH ×3 (09:50→20:24)
[2016-11-09] MEDS: POTASSIUM CL 10 MEQ TAB PO SCH ×2 (09:51→20:24)
[2016-11-09] MEDS: ASCORBIC ACID 500 MG TAB PO SCH (09:51)
[2016-11-09] MEDS: INSULIN LISPRO 100 UNIT/ML SC SCH ×3 (09:52→18:43)
[2016-11-09] MEDS: INSULIN NPH HUMAN 100 UNITS/ML SYRINGE SC SCH ×2 (09:56→18:43)
[2016-11-09] MEDS: POLYETHYLENE GLYCOL 3350 17 GM PKT PO SCH (09:58)
--- NOTE | 2016-11-09 10:34 | PCMIDPN ---
Assessment/Plan: 1. Abdominal wall cellulitis with 3 small abscesses noted on ultrasound: Patient to go to the operating room for incision and drainage of the superficial abscesses today, as he does not want this done at the bedside given pain intolerance. I have ordered a Gram stain and culture. I told the patient that he would likely be here over the weekend until we can figure out what to do with his antibiotics once we have an organism. He may need a course of IV antibiotics, but hopefully can change to oral. Of note, the patient states that he does not tolerate doxycycline, but does tolerate Bactrim. Continue vancomycin as is. 2. HIV: Continue Triumeq. Please note that 1 of the medications in this drug causes decreased tubular secretion of creatinine, which does not affect the overall GFR. Suspect this is the reason for his creatinine bump to 1.2. Also of note, will change calcium and vitamin-D to once daily, as calcium , magnesium, aluminum binders can bind the active site of Dolutegravir, rendering it inactive. Subjective: In good spirits. Loquacious. Eager to have the 3 small subcutaneous abscesses drained. Objective: Vancomycin 1.5 g IV q.12 hours day 4. Triumeq 1 tab p.o. daily Fluconazole 100 mg p.o. daily Afebrile Vital Signs Temp Pulse Resp BP Pulse Ox 36.7 C 78 18 97/57 L 95 11/09/16 08:00 11/09/16 09:53 11/09/16 08:00 11/09/16 09:53 11/09/16 08:00 Laboratory Results 11/09/16 05:01 11/09/16 05:01 11/08/16 11/09/16 11/10/16 05:59 05:59 05:59 Intake Total 940 800 Output Total 4125 1400 Balance -3185 -600 No new microbiology - Physical Exam General Appearance: no apparent distress, obese Respiratory: lungs clear Abdomen: other (Visible quarter-sized superficial abscess with fluctuance and erythema. This is tender. He also has 2 other areas that are nodular on exam in the same area. Significant abdominal striae from steroids noted.) ICD10 Worksheet Patient Problems: Problems Problem Status Onset Cellulitis, abdominal wall Acute Chronic anemia Acute Hypokalemia Acute
[2016-11-09] MEDS ORDERED: BUPIVACAINE 0.5% 30 ML SDV ONE (14:30)
[2016-11-09] MEDS ORDERED: BACITRACIN 50,000 UNITS/10 ML SYR IRR ONE (14:31)
[2016-11-09] MEDS ORDERED: POLYMYXIN B SULFATE 500,000 UNIT/10 ML SYR IRR ONE (14:31)
--- NOTE | 2016-11-09 14:44 | GCON ---
[f rep st] CONSULTATION DATE OF CONSULTATION: 11/09/2016 HISTORY OF PRESENT ILLNESS: This is a 45-year-old gentleman who presents to the hospital for abdominal wall abscess and cellulitis. The patient has a known history of HIV. He is MRCP positive by report, and had previous I and D of the area performed 2 weeks ago at an outside hospital. The patient has abdominal pain on the right side of the anterior abdominal wall that is radiating to his groin. The patient was started on vancomycin therapy. 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 PAST SURGICAL HISTORY: None. ALLERGIES: Patient is allergic to amlodipine, celecoxib, doxycycline, Saverine , gabapentin, latex, nortriptyline, NSAIDs, penicillin, prednisone and oats. FAMILY HISTORY: Noncontributory, reviewed. SOCIAL HISTORY: The patient denies alcohol, drug or tobacco use. He is living in a nursing care facility at this time. REVIEW OF SYSTEMS: Significant for abdominal pain, abdominal cellulitis. PHYSICAL EXAMINATION: VITAL SIGNS: The patient is alert, oriented, but very nervous. He had been hypotensive earlier today, but his blood pressure is now 118/74, heart rate of 80, respiratory rate of 18, saturating 93% on room air with a temperature of 36.8. GENERAL: He is alert, oriented to person, place, time. LUNGS: Clear. HEART: Regular heart tones. ABDOMEN: Obese. He has three areas of abscess formation tubercle, lessened in the mid part of the abdomen. One in the lower abdomen is not fluctuant. EXTREMITIES: Without edema. He has 2+ over 2+ femoral and dorsalis pedis pulses. SKIN: He has no skin changes. No rashes. No signs acute sepsis. LABORATORY STUDIES: White blood cell count of 3.38, hemoglobin of 10, hematocrit of 30, platelet count of 92. His chemistries show sodium 139, potassium 3.5, chloride 109, bicarb 26, BUN 22, creatinine 1.2. Glucose is 117. Coag study shows his INR today is 1.88 consistent with Coumadin use. MEDICATIONS: Medications were reviewed. A complete list is noted in the chart. IMPRESSION: Abdominal wall abscesses. Ultrasound was also reviewed. Agree with of findings of multiple subcutaneous abscesses in the abdominal wall, likely secondary to immunosuppression and chronic steroid use, as well as HIV. The risks, benefits and alternatives to bedside I and D versus surgical I and D have been outlined to the patient. We will plan to go to the operating room today with monitored anesthesia care for risk of rebleeding and also patient anxiety, and chronic pain. /[id number]/MODL MTDD
[2016-11-09] MEDS ORDERED: SCOPOLAMINE HYDROBROMIDE 1.5 MG PATCH TD ONE (15:49)
[2016-11-09] MEDS ORDERED: MIDAZOLAM 2 MG/2 ML VIAL ONE (15:59)
[2016-11-09] MEDS ORDERED: fentaNYL 100 MCG/2 ML INJ ONE ×2 (16:03→16:56)
[2016-11-09] MEDS ORDERED: methylPREDNISolone SOD SUCC 125 MG/2 ML VIAL ONE (16:03)
[2016-11-09] MEDS ORDERED: ROCURONIUM 50 MG/5 ML VIAL ONE (16:03)
[2016-11-09] MEDS ORDERED: PROPOFOL 200 MG/20 ML VIAL ONE (16:03)
[2016-11-09] MEDS ORDERED: SUGAMMADEX SODIUM 200 MG/2 ML VIAL IVP ONE (16:04)
[2016-11-09] MEDS ORDERED: ONDANSETRON 4 MG/2 ML VIAL ONE (16:04)
[2016-11-09] MEDS ORDERED: LIDOCAINE 2% 5 ML SDV ONE (16:04)
--- NOTE | 2016-11-09 17:41 | POSTOPPROG ---
Post Op Note Date of Operation: 11/09/16 Surgeon: Bolivar Coronado Brush Trimming Machine Setter: none Anesthesia: GET(General Endotracheal) Pre-op Diagnosis: abdominal abscessx3 Post-op Diagnosis: same Procedure: Incision and drainage Findings: minimal pus induration Inf/Abcess present in the surg proc area at time of surgery?: Yes Depth: Superfical (Skin SQ) EBL: Minimal Specimen(s): cultures to microbiology
[2016-11-09] MEDS: TRIUMEQ PO SCH (18:44)
[2016-11-09] MEDS: PRAVASTATIN SODIUM 40 MG TAB PO SCH (18:44)
--- NOTE | 2016-11-09 19:30 | GOP ---
[f rep st] OPERATIVE REPORT DATE OF OPERATION: SURGEON: Bolivar Coronado MD ANESTHESIA: General endotracheal anesthesia. ANESTHESIOLOGIST: Iban Rivera MD PREOPERATIVE DIAGNOSIS: Abdominal wall infection. POSTOPERATIVE DIAGNOSIS: Abdominal wall infection. Abscess x3. PROCEDURE PERFORMED: Incision and drainage. FINDINGS: Induration and small amount of pus in the abscesses. SPECIMENS: Culture to permanent pathology. 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 DESCRIPTION OF PROCEDURE: The patient was brought to the operating room. After induction of endotr acheal anesthesia, the abdomen was prepped with chlorhexidine and draped sterilely. A time-out proc edure was performed according to institutional standards. Local anesthetic 0.5% Marcaine with epine phrine was infused in skin and subcutaneous tissues. Incision was made over the largest abscess in a transverse fashion and this is cultured for bacteria. The area is then broken up with loculations and a 2nd abscess just inferior to this was broken up at the same time. Hemostasis was assured. T he area was irrigated copiously with saline and packed with iodoform gauze. A 3rd abscess that is n oted in the right flank was also treated with incision and drainage with irrigation and packing in a similar fashion. The patient tolerates the procedure well. Dressing was applied. The patient jameel kened, extubated and taken to the recovery room in stable condition. No immediate complications. /[id number]/MODL
[2016-11-09] MEDS ORDERED: HYDROCORTISONE 10 MG TAB PO ONE (20:22)
[2016-11-09] MEDS: SERTRALINE HCL 100 MG TAB PO SCH (20:24)
[2016-11-09] MEDS: FENOFIBRATE 145 MG TAB PO SCH (20:24)
[2016-11-09] MEDS: WARFARIN SODIUM 5 MG TAB PO SCH (20:25)
[2016-11-09] MEDS ORDERED: INSULIN LISPRO 100 UNIT/ML SC ONE (23:30)
[2016-11-10] MEDS: VANCOMYCIN 1.5 GM in D5W 250 ML IV SCH ×2 (04:14→17:27)
[2016-11-10] MEDS: oxyCODONE IR 5 MG TAB PO PRN ×3 (04:21→19:42)
[2016-11-10 05:35] LABS: INR 2.2 (0.83-1.16); PROTIME(PATIENT) 24.6 SEC (12.0-15.0)
[2016-11-10 05:39] LABS: % IMMATURE GRANULYOCYTES 1.9 % (0.0-1.1); ABSOLUTE IMMATURE GRANULOCYTES 0.06 10^3/uL (0.00-0.10); ADD DIFF? NO; ADD MORPH? NO; ADD SCAN? NO; ATYPICAL LYMPHOCYTE FLAG 0 (0-99); FRAGMENT RBC FLAG 0 (0-99); HEMATOCRIT 28.6 % (40.0-51.0); HEMOGLOBIN 9.5 g/dL (13.7-17.5); LEFT SHIFT FLG 30 (0-99); LIPEMIA HEMOLYSIS FLAG 80 (0-99); MEAN CELL HEMOGLOBIN 30.8 pg (27.9-34.1); MEAN CELL HEMOGLOBIN CONCENTR. 33.2 g/dL (32.4-36.7); MEAN CELL VOLUME 92.9 fL (81.5-99.8); PLATELET CLUMPS FLAG 0 (0-99); PLATELET COUNT 94 10^3/uL (150-400); RED BLOOD CELL COUNT 3.08 10^6/uL (4.40-6.38); RED CELL DISTRIBUTION WIDTH 15.8 % (11.5-15.2)
[2016-11-10 05:52] LABS: ANION GAP 9 mEq/L (8-16); CALCIUM 8.7 mg/dL (8.5-10.4); CARBON DIOXIDE 24 mEq/l (22-31); CHLORIDE 106 mEq/L (97-110); CREATININE 1.4 mg/dL (0.7-1.3); GLOMERULAR FILTRATION RATE 55; GLUCOSE 312 mg/dL (70-100); POTASSIUM 4.2 mEq/L (3.5-5.2); SODIUM 139 mEq/L (134-144)
[2016-11-10] MEDS: INSULIN LISPRO 100 UNIT/ML SC SCH ×3 (09:31→20:30)
[2016-11-10] MEDS: INSULIN NPH HUMAN 100 UNITS/ML SYRINGE SC SCH ×2 (09:54→19:07)
[2016-11-10] MEDS: HYDROCORTISONE 10 MG TAB PO SCH ×3 (09:59→16:51)
[2016-11-10] MEDS: FUROSEMIDE 40 MG TAB PO SCH (10:01)
[2016-11-10] MEDS: ATENOLOL 25 MG TAB PO SCH ×2 (10:02→22:33)
[2016-11-10] MEDS: CALCIUM CARB W/VIT D 500 MG TAB PO SCH (10:03)
[2016-11-10] MEDS: ASCORBIC ACID 500 MG TAB PO SCH (10:04)
[2016-11-10] MEDS: FLUDROCORTISONE ACETATE 0.1 MG TAB PO SCH (10:04)
[2016-11-10] MEDS: FAMOTIDINE 20 MG TAB PO SCH ×2 (10:05→22:31)
[2016-11-10] MEDS: FERROUS SULFATE 325 MG TAB PO SCH (10:05)
[2016-11-10] MEDS: POTASSIUM CL 10 MEQ TAB PO SCH ×2 (10:08→22:31)
[2016-11-10] MEDS: FLUCONAZOLE 100 MG TAB PO SCH (10:08)
[2016-11-10] MEDS: DIAZEPAM 5 MG TAB PO SCH ×3 (10:09→22:32)
[2016-11-10] MEDS: TAMSULOSIN HCL 0.4 MG CAP PO SCH (10:09)
[2016-11-10] MEDS: POLYETHYLENE GLYCOL 3350 17 GM PKT PO SCH (10:10)
[2016-11-10] MEDS: WARFARIN SODIUM 5 MG TAB PO SCH (15:01)
--- NOTE | 2016-11-10 15:34 | PCMIDPN ---
Assessment/Plan: Assessment/Plan: 1. Abdominal cellulitis with small abscesses: - s/p I &D yesterday. - CX wtih staph aureus, GP organism so far -currently on Vanco - creatinine up slightly today to 1.4. could be related to Triumeq vs vanco vs other. -will check trough now to further evaluate. last trough on 11/07/16 was 11.8. -recheck labs in AM. 2. HIV - On Triumeq Meds Vanco 1.5g q12- 11/05/16 Fluconazole 100mg daily- Subjective: afebrile. c/o abdominal pain ines on right side where recent I & D done. did have lower abd pain as well but this has improved. denies sob. had loose stool yesterday, but none today so far. Objective: Vital Signs Temp Pulse Resp BP Pulse Ox 36.9 C 79 18 123/79 H 94 11/10/16 11:47 11/10/16 11:47 11/10/16 11:47 11/10/16 11:47 11/10/16 11:47 Microbiology 11/09/16 16:34 Gram Stain - Final Abdomen - Eswab 11/09/16 16:34 Gram Stain - Final Abdomen - Eswab Laboratory Results 11/10/16 05:10 11/10/16 05:10 11/09/16 11/10/16 11/11/16 05:59 05:59 05:59 Intake Total 800 500 Output Total 1400 1100 Balance -600 -600 - Physical Exam General Appearance: alert, no apparent distress Respiratory: lungs clear Cardiac/Chest: regular rate, rhythm Extremities: No swelling Abdomen: normal bowel sounds, soft, distended, other (small I & D noted on right abd wit ongoing oozing of serosanguinous material. indurated around site. tender) ICD10 Worksheet Patient Problems: Problems Problem Status Onset Abscess of abdominal wall Acute Cellulitis, abdominal wall Acute Chronic anemia Acute Hypokalemia Acute
--- NOTE | 2016-11-10 16:26 | HOSPPROG ---
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 Abdominal wall cellulitis/abscess s/p I&D yesterday. Hematuria and nonobstructive renal stone, hematuria resolved with lowering his INR. Lower extremity edema, significantly improved with Lasix. # abd wall abscess/cellulitis - has a hx of MRSA; overall improving - vanc per ID, appreciate assistance - discussed with Dr Coronado - s/p I&D yesterday with S. aureus # LE edema - echo ok; much better -hold Lasix # hypokalemia - better today with lower lasix dose and increased klor-con - cont Kcl 20 bid - recheck tomorrow # chest pain - teddy negative # hematuria, non-obstructive renal stone - hematuria resolved - outpatient urology f/u # DVT, on warfarin with therapeutic INR today - cont warfarin # mild thrombocytopenia - recheck tomorrow # HIV - ID changed regimen #ADA: Cr up from b/l which may be related to Vanco versus HIV regimen versus other - hold Lasix # allen's - cont steroids, no evidence of crisis # DM2, hyperglycemic - nocturnal NPH increased recently # lactic acidosis - resolved Subjective: Reports feeling depressed as this is Mother's day weekend. He has some abdominal pain from I&D. No dyspnea or edema currently. Objective: Vital Signs Temp Pulse Resp BP Pulse Ox 98.4 F 79 18 123/79 H 94 11/10/16 11:47 11/10/16 11:47 11/10/16 11:47 11/10/16 11:47 11/10/16 11:47 Microbiology 11/09/16 16:34 Gram Stain - Final Abdomen - Eswab 11/09/16 16:34 Gram Stain - Final Abdomen - Eswab Laboratory Results 11/10/16 05:10 11/10/16 05:10 11/09/16 11/10/16 11/11/16 05:59 05:59 05:59 Intake Total 800 500 Output Total 1400 1100 Balance -600 -600 PT 24.6 SEC (12.0-15.0) H 11/10/16 05:10 INR 2.20 (0.83-1.16) H 11/10/16 05:10 - Physical Exam Constitutional: no apparent distress Eyes: anicteric sclera Ears, Nose, Mouth, Throat: moist mucous membranes, hearing normal Cardiovascular: regular rate and rhythym, no murmur, rub, or gallop Respiratory: no respiratory distress, no rales or rhonchi Gastrointestinal: normoactive bowel sounds, distension Skin: warm, normal color Neurologic: AAOx3 Psychiatric: interacting appropriately ICD10 Worksheet Patient Problems: Problems Problem Status Onset Abscess of abdominal wall Acute Cellulitis, abdominal wall Acute Chronic anemia Acute Hypokalemia Acute
[2016-11-10] MEDS: TRIUMEQ PO SCH (16:51)
[2016-11-10] MEDS: PRAVASTATIN SODIUM 40 MG TAB PO SCH (16:52)
[2016-11-10] MEDS: ONDANSETRON DISINTEGRATING 4 MG TAB PO PRN (19:39)
[2016-11-10] MEDS: FENOFIBRATE 145 MG TAB PO SCH (22:30)
[2016-11-10] MEDS: SERTRALINE HCL 100 MG TAB PO SCH (22:31)
[2016-11-11] MEDS: oxyCODONE IR 5 MG TAB PO PRN ×4 (02:09→21:57)
[2016-11-11 04:44] LABS: % IMMATURE GRANULYOCYTES 1.9 % (0.0-1.1); ABSOLUTE IMMATURE GRANULOCYTES 0.08 10^3/uL (0.00-0.10); ADD DIFF? NO; ADD MORPH? NO; ADD SCAN? NO; ATYPICAL LYMPHOCYTE FLAG 0 (0-99); FRAGMENT RBC FLAG 0 (0-99); HEMATOCRIT 27.7 % (40.0-51.0); LEFT SHIFT FLG 20 (0-99); LIPEMIA HEMOLYSIS FLAG 80 (0-99); MEAN CELL HEMOGLOBIN 31.1 pg (27.9-34.1); MEAN CELL HEMOGLOBIN CONCENTR. 32.5 g/dL (32.4-36.7); MEAN CELL VOLUME 95.8 fL (81.5-99.8); MEAN PLATELET VOLUME 10.5 fL (8.7-11.7); PLATELET CLUMPS FLAG 10 (0-99); PLATELET COUNT 97 10^3/uL (150-400); RED BLOOD CELL COUNT 2.89 10^6/uL (4.40-6.38); RED CELL DISTRIBUTION WIDTH 15.5 % (11.5-15.2)
[2016-11-11] MEDS: ONDANSETRON DISINTEGRATING 4 MG TAB PO PRN (04:46)
[2016-11-11 04:53] LABS: INR 3.85 (0.83-1.16); PROTIME(PATIENT) 38.5 SEC (12.0-15.0)
[2016-11-11 05:05] LABS: ANION GAP 7 mEq/L (8-16); CARBON DIOXIDE 27 mEq/l (22-31); CHLORIDE 108 mEq/L (97-110); CREATININE 1.3 mg/dL (0.7-1.3); GLOMERULAR FILTRATION RATE 59; GLUCOSE 206 mg/dL (70-100); POTASSIUM 3.8 mEq/L (3.5-5.2); SODIUM 142 mEq/L (134-144)
[2016-11-11] MEDS: HYDROCORTISONE 10 MG TAB PO SCH ×3 (07:19→15:56)
[2016-11-11] MEDS: INSULIN NPH HUMAN 100 UNITS/ML SYRINGE SC SCH ×2 (08:12→17:55)
[2016-11-11] MEDS: INSULIN LISPRO 100 UNIT/ML SC SCH ×3 (08:13→17:57)
[2016-11-11] MEDS: ATENOLOL 25 MG TAB PO SCH ×2 (08:15→21:29)
[2016-11-11] MEDS: ASCORBIC ACID 500 MG TAB PO SCH (08:15)
[2016-11-11] MEDS: POTASSIUM CL 10 MEQ TAB PO SCH ×2 (08:15→21:29)
[2016-11-11] MEDS: FAMOTIDINE 20 MG TAB PO SCH ×2 (08:16→21:29)
[2016-11-11] MEDS: FLUCONAZOLE 100 MG TAB PO SCH (08:16)
[2016-11-11] MEDS: CALCIUM CARB W/VIT D 500 MG TAB PO SCH (08:17)
[2016-11-11] MEDS: TAMSULOSIN HCL 0.4 MG CAP PO SCH (08:17)
[2016-11-11] MEDS: FLUDROCORTISONE ACETATE 0.1 MG TAB PO SCH (08:18)
[2016-11-11] MEDS: DIAZEPAM 5 MG TAB PO SCH ×3 (08:18→21:29)
[2016-11-11] MEDS: FERROUS SULFATE 325 MG TAB PO SCH (08:19)
--- NOTE | 2016-11-11 10:25 | SOAPPROG ---
SOAP Progress Note Assessment/Plan: Assessment:no wound complaints. incisions clean - packing removed. no erythema or purulence. continued local wound care with soap/water. cover with gauze daily/prn. call with questions. Plan: 11/11/16 10:24 Objective: Vital Signs Temp Pulse Resp BP Pulse Ox 36.9 C 86 16 122/78 H 90 L 11/11/16 07:16 11/11/16 07:16 11/11/16 07:16 11/11/16 07:16 11/11/16 07:16 Microbiology 11/09/16 16:34 Gram Stain - Final Abdomen - Eswab 11/09/16 16:34 Gram Stain - Final Abdomen - Eswab Laboratory Results 11/11/16 04:30 11/11/16 04:30 11/10/16 11/11/16 11/12/16 05:59 05:59 05:59 Intake Total 500 250 Output Total 1100 400 Balance -600 -150 PT 38.5 SEC (12.0-15.0) H D 11/11/16 04:30 INR 3.85 (0.83-1.16) H 11/11/16 04:30 ICD10 Worksheet Patient Problems: Problems Problem Status Onset Abscess of abdominal wall Acute Cellulitis, abdominal wall Acute Chronic anemia Acute Hypokalemia Acute
[2016-11-11] MEDS: POLYETHYLENE GLYCOL 3350 17 GM PKT PO SCH ×2 (11:01→14:40)
[2016-11-11] MEDS: VANCOMYCIN HCL/NORMAL SALINE 250 ML IV SCH ×2 (12:19→23:12)
--- NOTE | 2016-11-11 14:16 | HOSPPROG ---
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 Abdominal wall cellulitis/abscess s/p I&D yesterday. Hematuria and nonobstructive renal stone, hematuria resolved with lowering his INR. Lower extremity edema, significantly improved with Lasix. # abd wall abscess/cellulitis - has a hx of MRSA; overall improving - vanc per ID, appreciate assistance # LE edema - echo ok; continues to be stable despite holding lasix -continue to hold Lasix # hypokalemia - stable - cont Kcl 20 bid - recheck tomorrow # chest pain - teddy negative # hematuria, non-obstructive renal stone - hematuria resolved - outpatient urology f/u # DVT, on warfarin with supratherapeutic INR today - hold Warfarin today and recheck INR # mild thrombocytopenia - recheck tomorrow # HIV - ID changed regimen #ADA: Cr up from b/l which may be related to Vanco versus HIV regimen versus other - hold Lasix - pt sees renal as outpatient and he feels his b/l Cr is 1.5 / came in with Cr 0.8 # allen's - cont steroids, no evidence of crisis # DM2, hyperglycemic - nocturnal NPH increased recently # lactic acidosis - resolved Subjective: Reports pain in ribs from previous rib fractures. Abdominal pain persists. Edema resolved. Objective: Vital Signs Temp Pulse Resp BP Pulse Ox 98.4 F 65 18 128/80 H 94 11/11/16 12:00 11/11/16 12:00 11/11/16 12:00 11/11/16 12:00 11/11/16 12:00 Microbiology 11/09/16 16:34 Gram Stain - Final Abdomen - Eswab 11/09/16 16:34 Gram Stain - Final Abdomen - Eswab Laboratory Results 11/11/16 04:30 11/11/16 04:30 11/10/16 11/11/16 11/12/16 05:59 05:59 05:59 Intake Total 500 250 Output Total 1100 700 Balance -600 -450 PT 38.5 SEC (12.0-15.0) H D 11/11/16 04:30 INR 3.85 (0.83-1.16) H 11/11/16 04:30 - Physical Exam Constitutional: no apparent distress Eyes: anicteric sclera Ears, Nose, Mouth, Throat: moist mucous membranes Cardiovascular: regular rate and rhythym, no murmur, rub, or gallop Respiratory: no respiratory distress, no rales or rhonchi ICD10 Worksheet Patient Problems: Problems Problem Status Onset Abscess of abdominal wall Acute Cellulitis, abdominal wall Acute Chronic anemia Acute Hypokalemia Acute
[2016-11-11] MEDS: VANCOMYCIN 1.5 GM in D5W 250 ML IV SCH (14:55)
[2016-11-11] MEDS: TRIUMEQ PO SCH (15:57)
--- NOTE | 2016-11-11 16:08 | WOCRNPDOC ---
WOCRN Advanced Assessment Note - Skin Integrity Problem, Advanced Assess Right Abdomen Surgical Wound/Incision Dressing Type: Gauze Dressing Description: Intact, Shadowed Exudate Amount: Moderate Exudate Color: Red Exudate Characteristic(s): Dried, Serosanguinous Integumentary Issue Intervention: Dressing Removed Yudith Wound Tissue: Intact Yudith Wound Swelling: Mild Wound Bed Color: Purple Wound Bed Constitution: Smooth Tissue Wound Edges: Well Defined Site Odor: None Site Measurement - Head-to-Toe Length X Width X Depth (cm): 0.5 x 2 x 1 Skin Integrity Problem Comment: I & D site is clean, open, draining serosanguinous. Patient verbalizes anxiety about managing after DC; reports that he is comfortable with packing wound himself, having previous experience with a previous injury. Described care to patient and to medical staff specialistTARA Cervantes: Irrigate with sterile NS or may wash with warm water (soap okay) after DC; Fill with Algidex Ag strip packing; Cover with small Allevyn or large bandaid--extra gauze if needed for more absortption of drainage.
--- NOTE | 2016-11-11 16:20 | PCMIDPN ---
Assessment/Plan: Assessment/Plan: 1. Abdominal cellulitis with small abscesses: - s/p I &D yesterday. - CX wtih MRSA. vanco STEFAN=1 -currently on Vanco. Creatinine was up yesterday at 1.4 thus i checked vanco trough and it was at 22 yesterday. dose held . RAndom level today at 15.Restart today at 1g q12. -Hopefully transition to oral antibiotics soon. -creatinine at 1.3. -recheck labs in AM. 2. HIV - On Triumeq Meds Vanco 1.5g q12- 11/05/16-11/10/16. Held dose yesterday. restart today. Fluconazole 100mg daily- Subjective: Afebrile. feels better today. still oozing from one of the I & D sites. less abd tenderness. denies sob. having formed stools per patient. Objective: Vital Signs Temp Pulse Resp BP Pulse Ox 36.9 C 65 18 128/80 H 94 11/11/16 12:00 11/11/16 12:00 11/11/16 12:00 11/11/16 12:00 11/11/16 12:00 Microbiology 11/09/16 16:34 Gram Stain - Final Abdomen - Eswab 11/09/16 16:34 Gram Stain - Final Abdomen - Eswab Laboratory Results 11/11/16 04:30 11/11/16 04:30 11/10/16 11/11/16 11/12/16 05:59 05:59 05:59 Intake Total 500 250 Output Total 1100 700 Balance -600 -450 - Physical Exam General Appearance: alert, no apparent distress Respiratory: lungs clear Cardiac/Chest: regular rate, rhythm Extremities: No swelling Abdomen: normal bowel sounds, soft, distended, other (mildly tender near I & D sites.) Skin: other (two i & d sites noted. less induration around area. no surrounding erythema. one site still oozing blood. ) ICD10 Worksheet Patient Problems: Problems Problem Status Onset Abscess of abdominal wall Acute Cellulitis, abdominal wall Acute Chronic anemia Acute Hypokalemia Acute
[2016-11-11] MEDS: PRAVASTATIN SODIUM 40 MG TAB PO SCH (17:58)
[2016-11-11] MEDS: FENOFIBRATE 145 MG TAB PO SCH (21:29)
[2016-11-11] MEDS: SERTRALINE HCL 100 MG TAB PO SCH (21:29)
[2016-11-12 05:15] LABS: ADD DIFF? YES; ADD MORPH? NO; ADD SCAN? NO; ATYPICAL LYMPHOCYTE FLAG 0 (0-99); FRAGMENT RBC FLAG 0 (0-99); HEMATOCRIT 27.9 % (40.0-51.0); HEMOGLOBIN 9.1 g/dL (13.7-17.5); LEFT SHIFT FLG 40 (0-99); LIPEMIA HEMOLYSIS FLAG 80 (0-99); MEAN CELL HEMOGLOBIN 31.3 pg (27.9-34.1); MEAN CELL HEMOGLOBIN CONCENTR. 32.6 g/dL (32.4-36.7); MEAN CELL VOLUME 95.9 fL (81.5-99.8); MEAN PLATELET VOLUME 10.5 fL (8.7-11.7); PLATELET CLUMPS FLAG 0 (0-99); PLATELET COUNT 100 10^3/uL (150-400); RED BLOOD CELL COUNT 2.91 10^6/uL (4.40-6.38); RED CELL DISTRIBUTION WIDTH 15.7 % (11.5-15.2)
[2016-11-12 05:49] LABS: ANION GAP 6 mEq/L (8-16); CALCIUM 9.4 mg/dL (8.5-10.4); CARBON DIOXIDE 27 mEq/l (22-31); CHLORIDE 112 mEq/L (97-110); CREATININE 1.5 mg/dL (0.7-1.3); GLOMERULAR FILTRATION RATE 50; GLUCOSE 117 mg/dL (70-100); POTASSIUM 3.9 mEq/L (3.5-5.2); SODIUM 145 mEq/L (134-144)
[2016-11-12 06:12] LABS: MACROCYTES 1+; MICROCYTES 1+
[2016-11-12 06:13] LABS: PLATELET ESTIMATE DECREASED (ADEQ)
[2016-11-12] MEDS: HYDROCORTISONE 10 MG TAB PO SCH ×3 (08:35→15:43)
[2016-11-12] MEDS: INSULIN NPH HUMAN 100 UNITS/ML SYRINGE SC SCH ×2 (08:36→17:48)
--- NOTE | 2016-11-12 08:50 | HOSPPROG ---
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 Abdominal wall cellulitis/abscess s/p I&D yesterday. Hematuria and nonobstructive renal stone, hematuria resolved with lowering his INR. Lower extremity edema, significantly improved with Lasix. Today is my 1st encounter with the patient. Chart reviewed. Reviewed his care with Dr Shi. # MRSA abd wall abscess/cellulitis - - vanc per ID, appreciate assistance # Renal insufficiency. acute kidney injury creatinine is elevated at 1.5 holding Pepcid and statin. Avoiding nephrotoxins agents # HIV. On Triumeq # LE edema - echo ok; continues to be stable despite holding lasix -continue to hold Lasix # hypokalemia - stable - cont Kcl 20 bid - k is 3.9 # chest pain - teddy negative # hematuria, non-obstructive renal stone - hematuria resolved - outpatient urology f/u # DVT/ supratherapeutic INR Coumadin on hold # mild thrombocytopenia # Daniels's - cont steroids, no evidence of crisis # DM2, hyperglycemic - nocturnal NPH increased recently # lactic acidosis - resolved #Plan: likely dc tomorrow/patient doesn't want to return to where he was living / CM looking at options Subjective: Manoj has no complaints/ having a good day. Objective: Vital Signs Temp Pulse Resp BP Pulse Ox 37.2 C 70 16 112/74 90 L 11/12/16 08:00 11/12/16 08:00 11/12/16 08:00 11/12/16 08:00 11/12/16 08:00 Microbiology 11/09/16 16:34 Gram Stain - Final Abdomen - Eswab 11/09/16 16:34 Gram Stain - Final Abdomen - Eswab Laboratory Results 11/12/16 04:57 11/12/16 04:57 11/11/16 11/12/16 11/13/16 05:59 05:59 05:59 Intake Total 250 Output Total 2900 400 Balance -2650 -400 PT 38.5 SEC (12.0-15.0) H D 11/11/16 04:30 INR 3.85 (0.83-1.16) H 11/11/16 04:30 - Physical Exam Constitutional: no apparent distress, chronically ill appearing, obese Eyes: PERRL Ears, Nose, Mouth, Throat: moist mucous membranes Cardiovascular: regular rate and rhythym Respiratory: no respiratory distress Gastrointestinal: normoactive bowel sounds Skin: warm, other (abdomen with dressings on right lower quadrant area. ) Musculoskeletal: no muscle tenderness Neurologic: AAOx3 Psychiatric: interacting appropriately ICD10 Worksheet Patient Problems: Problems Problem Status Onset Abscess of abdominal wall Acute Cellulitis, abdominal wall Acute Chronic anemia Acute Hypokalemia Acute
[2016-11-12] MEDS: DIAZEPAM 5 MG TAB PO SCH ×3 (09:06→20:50)
[2016-11-12] MEDS: CALCIUM CARB W/VIT D 500 MG TAB PO SCH (09:06)
[2016-11-12] MEDS: FLUDROCORTISONE ACETATE 0.1 MG TAB PO SCH (09:07)
[2016-11-12] MEDS: FLUCONAZOLE 100 MG TAB PO SCH (09:07)
[2016-11-12] MEDS: TAMSULOSIN HCL 0.4 MG CAP PO SCH (09:08)
[2016-11-12] MEDS: FERROUS SULFATE 325 MG TAB PO SCH (09:08)
[2016-11-12] MEDS: ASCORBIC ACID 500 MG TAB PO SCH (09:08)
[2016-11-12] MEDS: ATENOLOL 25 MG TAB PO SCH ×2 (09:09→20:50)
--- NOTE | 2016-11-12 09:24 | PCMIDPN ---
Assessment/Plan: 1. MRSA abdominal wall cellulitis abscesses status post incision and drainage: Marked improvement since incision and drainage. Suspect he may only need antibiotics another day or 2. Would prefer to continue intravenous vancomycin while he is here, especially because he does not tolerate doxycycline, and I am concerned he will not tolerate Bactrim. 2. HIV: Continue Triumeq as is. 3. Elevated creatinine: This is out of proportion for what I would expect with Dolutegravir. Agree with stopping Pepcid, continuing intravenous hydration, and repeating vancomycin levels. Again, suspect he will only need antibiotics another day or 2 given marked improvement in cellulitis After drainage. 4. Disposition: Up in the air. I will need to talk to social work about the plan moving forward , as the patient does not want to go back to his previous snf facility. From my perspective, the patient is able to be discharged in the next 24 hours. 11/12/16 09:20 Subjective: No major overnight events except for successful incision and drainage of his abscesses, which grew MRSA. Marked improvement in cellulitis. The patient is in good spirits, but does not want to go back to his previous snf facility. Patient's creatinine also bumped over the weekend, out of proportion to what would be expected with Dolutegravir. Vancomycin levels were found to be high, and the dose was adjusted. Objective: Afebrile Vancomycin 1 g IV q.12 hours day 7. Vital Signs Temp Pulse Resp BP Pulse Ox 37.2 C 70 16 112/74 90 L 11/12/16 08:00 11/12/16 08:00 11/12/16 08:00 11/12/16 08:00 11/12/16 08:00 Microbiology 11/09/16 16:34 Gram Stain - Final Abdomen - Eswab 11/09/16 16:34 Gram Stain - Final Abdomen - Eswab Laboratory Results 11/12/16 04:57 11/12/16 04:57 11/11/16 11/12/16 11/13/16 05:59 05:59 05:59 Intake Total 250 Output Total 2900 400 Balance -2650 -400 Abdominal abscess with MRSA - Physical Exam General Appearance: alert, no apparent distress Abdomen: other (To abscess areas that were drained are covered. I uncovered 1 of them, and it is packed and looks excellent. Minimal erythema.) ICD10 Worksheet Patient Problems: Problems Problem Status Onset Abscess of abdominal wall Acute Cellulitis, abdominal wall Acute Chronic anemia Acute Hypokalemia Acute
[2016-11-12] MEDS: POTASSIUM CL 10 MEQ TAB PO SCH ×2 (09:40→20:49)
[2016-11-12 11:11] LABS: INR 3.82 (0.83-1.16); PROTIME(PATIENT) 38.3 SEC (12.0-15.0)
[2016-11-12] MEDS: INSULIN LISPRO 100 UNIT/ML SC SCH ×3 (11:11→17:48)
[2016-11-12] MEDS: POLYETHYLENE GLYCOL 3350 17 GM PKT PO SCH (11:12)
[2016-11-12] MEDS: VANCOMYCIN HCL/NORMAL SALINE 250 ML IV SCH (14:34)
[2016-11-12] MEDS: TRIUMEQ PO SCH (17:47)
[2016-11-12] MEDS: SERTRALINE HCL 100 MG TAB PO SCH (20:49)
[2016-11-12] MEDS: FENOFIBRATE 145 MG TAB PO SCH (20:51)
[2016-11-13 05:36] LABS: INR 3.42 (0.83-1.16)
[2016-11-13 05:44] LABS: ANION GAP 4 mEq/L (8-16); CALCIUM 9.3 mg/dL (8.5-10.4); CARBON DIOXIDE 28 mEq/l (22-31); CHLORIDE 110 mEq/L (97-110); CREATININE 1.4 mg/dL (0.7-1.3); GLOMERULAR FILTRATION RATE 55; GLUCOSE 121 mg/dL (70-100); POTASSIUM 3.5 mEq/L (3.5-5.2); SODIUM 142 mEq/L (134-144)
[2016-11-13] MEDS: oxyCODONE IR 5 MG TAB PO PRN ×2 (09:19→15:01)
[2016-11-13] MEDS: HYDROCORTISONE 10 MG TAB PO SCH ×3 (09:20→15:00)
[2016-11-13] MEDS: TAMSULOSIN HCL 0.4 MG CAP PO SCH (09:21)
[2016-11-13] MEDS: FLUDROCORTISONE ACETATE 0.1 MG TAB PO SCH (09:21)
[2016-11-13] MEDS: ASCORBIC ACID 500 MG TAB PO SCH (09:22)
[2016-11-13] MEDS: DIAZEPAM 5 MG TAB PO SCH (09:22)
[2016-11-13] MEDS: FERROUS SULFATE 325 MG TAB PO SCH (09:22)
[2016-11-13] MEDS: CALCIUM CARB W/VIT D 500 MG TAB PO SCH (09:22)
[2016-11-13] MEDS: ATENOLOL 25 MG TAB PO SCH (09:22)
[2016-11-13] MEDS: POTASSIUM CL 10 MEQ TAB PO SCH (09:23)
[2016-11-13] MEDS: POLYETHYLENE GLYCOL 3350 17 GM PKT PO SCH (09:25)
[2016-11-13] MEDS: INSULIN LISPRO 100 UNIT/ML SC SCH ×2 (09:26→13:17)
[2016-11-13 09:28] VITALS: BP 127/94; PULSE 70; RESP 20; TEMP 98.3; O2SAT 93
[2016-11-13] MEDS: INSULIN NPH HUMAN 100 UNITS/ML SYRINGE SC SCH (09:37)
--- NOTE | 2016-11-13 09:54 | HOSPPROG ---
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 Abdominal wall cellulitis/abscess s/p I&D yesterday. Hematuria and nonobstructive renal stone, hematuria resolved with lowering his INR. Lower extremity edema, significantly improved with Lasix. # MRSA abd wall abscess/cellulitis - -much improved -Vanco dc yesterday # Renal insufficiency. acute kidney injury creatinine is elevated at 1.4 holding Pepcid and statin. Avoiding nephrotoxins agents # HIV. On Triumeq # LE edema - echo ok; continues to be stable despite holding lasix -continue to hold Lasix # hypokalemia - stable - cont Kcl 20 bid - k is 3.9 # chest pain - teddy negative # hematuria, non-obstructive renal stone - hematuria resolved - outpatient urology f/u # DVT/ supratherapeutic INR Coumadin on hold inr today is 3/42 # mild thrombocytopenia # Reece's - cont steroids, no evidence of crisis # DM2, hyperglycemic - nocturnal NPH increased recently # lactic acidosis - resolved #Plan: dc today Subjective: Manoj is c/o a headache. Gets them frequently. Objective: Vital Signs Temp Pulse Resp BP Pulse Ox 36.8 C 70 20 127/94 H 93 11/13/16 09:28 11/13/16 09:28 11/13/16 09:28 11/13/16 09:28 11/13/16 09:28 Microbiology 11/09/16 16:34 Gram Stain - Final Abdomen - Eswab 11/09/16 16:34 Gram Stain - Final Abdomen - Eswab Laboratory Results 11/12/16 04:57 11/13/16 04:54 11/12/16 11/13/16 11/14/16 05:59 05:59 05:59 Intake Total 250 2770 300 Output Total 2900 2600 400 Balance -2650 170 -100 PT 35.0 SEC (12.0-15.0) H 11/13/16 04:54 INR 3.42 (0.83-1.16) H 11/13/16 04:54 - Physical Exam Constitutional: not in pain (headache), chronically ill appearing, obese Eyes: PERRL Cardiovascular: regular rate and rhythym Respiratory: no respiratory distress Gastrointestinal: normoactive bowel sounds Skin: warm, other (multipe bruises on abdomen/ left forearm area. Wound on rl abd not approximated/pink. no drainage.) Neurologic: AAOx3 Psychiatric: interacting appropriately, not anxious ICD10 Worksheet Patient Problems: Problems Problem Status Onset Abscess of abdominal wall Acute Cellulitis, abdominal wall Acute Chronic anemia Acute Hypokalemia Acute
--- NOTE | 2016-11-13 09:55 | PCMIDPN ---
Assessment/Plan: 1. MRSA abdominal wall cellulitis abscesses status post incision and drainage: Marked improvement since incision and drainage. I stopped all antibiotics yesterday. The patient will need meticulous wound care at the detention moving forward. This was explained to him. 2. HIV: Continue Triumeq as is. 3. Elevated creatinine: Creatinine 1.4 today. Improved. 4. Disposition: The patient unfortunately will need to return to [facility], and he understands this and is agreeable to discharge. He will see me back in the office SaturdayDecember 03 at 12:30 p.m. I will contact the physician at [facility] to make sure they have my phone number moving forward given the complexity of this patient. Subjective: Has a mild headache today. No other complaints. Objective: No antibiotics Afebrile Vital Signs Temp Pulse Resp BP Pulse Ox 36.8 C 70 20 127/94 H 93 11/13/16 09:28 11/13/16 09:28 11/13/16 09:28 11/13/16 09:28 11/13/16 09:28 Microbiology 11/09/16 16:34 Gram Stain - Final Abdomen - Eswab 11/09/16 16:34 Gram Stain - Final Abdomen - Eswab Laboratory Results 11/12/16 04:57 11/13/16 04:54 11/12/16 11/13/16 11/14/16 05:59 05:59 05:59 Intake Total 250 2770 300 Output Total 2900 2600 400 Balance -2650 170 -100 - Physical Exam General Appearance: alert, no apparent distress Skin: other (Small opening right lower abdomen at site of incision and drainage with no surrounding cellulitis. Base of the wound looks clean. No pain. Cellulitis in other areas of his abdomen has completely resolved.) ICD10 Worksheet Patient Problems: Problems Problem Status Onset Abscess of abdominal wall Acute Cellulitis, abdominal wall Acute Chronic anemia Acute Hypokalemia Acute
--- NOTE | 2016-11-13 10:08 | PDIAF ---
- Diagnosis Diagnosis: MRSA abdominal wall cellulitis/ Diabetes, renal insufficiency Code Status: Full Code - Medication Management Discharge Medications: Medications to Continue on Transfer Acetaminophen [Tylenol 325mg (*)] 650 mg PO Q4HRS PRN 11/05/16 [Last Taken Unknown] Albuterol [Proventil Inhaler HFA (*)] 2 puffs IH Q4 PRN 11/05/16 [Last Taken Unknown] Albuterol [Proventil Neb] 3 ml IH Q4HRS PRN 11/05/16 [Last Taken Unknown] Ascorbic Acid [Vitamin C 500 mg (*)] 500 mg PO DAILY 11/05/16 [Last Taken Unknown] Atenolol [Tenormin 25 mg (*)] 25 mg PO BID 11/05/16 [Last Taken Unknown] Bisacodyl [Dulcolax] 10 mg RC DAILY PRN 11/05/16 [Last Taken Unknown] Cholecalciferol Vit D3 [Vitamin D3 (*)] 1,000 units PO DAILY 11/05/16 [Last Taken Unknown] Dexamethasone [Decadron 4mg/ml inj (*)] 4 mg IM DAILY PRN 11/05/16 [Last Taken Unknown] Diazepam [DIASTAT ACUDIAL] 1 each RC DAILY PRN 11/05/16 [Last Taken Unknown] Diazepam [Valium 5 MG (*)] 5 mg PO Q12 PRN 11/05/16 [Last Taken Unknown] Diazepam [Valium 5 MG (*)] 5 mg PO TID 11/05/16 [Last Taken 11/05/16 12:00] FLUDROCORTISONE ACETATE 0.1 mg PO DAILY 11/05/16 [Last Taken Unknown] Fenofibrate [Lofibra] 160 mg PO HS 11/05/16 [Last Taken Unknown] Ferrous Sulfate [Ferrous Sulf 325 MG (*)] 325 mg PO DAILY 11/05/16 [Last Taken 11/05/16] Furosemide [Lasix 40 MG (*)] 40 mg PO DAILY 11/05/16 [Last Taken 11/05/16] Herbals/Supplements -Info Only 1 each PO DAILY 11/05/16 [Last Taken Unknown] Hydrocortisone [Cortef] 5 mg PO 1200,1500 11/05/16 [Last Taken Unknown] Hydrocortisone [Cortef] 15 mg PO DAILY@0800 11/05/16 [Last Taken 11/05/16] Hyoscyamine Sulfate [Levsin, Hyomax-Sl 0.125 mg (*)] 0.125 mg PO Q8HRS PRN 11/05 [Last Taken Unknown] Insulin Aspart [novoLOG] 0 unit SQ TIDMEAL 11/05/16 [Last Taken Unknown] Insulin NPH Human [humULIN N 100 UNITS/ML (*)] 40 units SC DAILY@18 11/05/16 [ Last Taken Unknown] Insulin NPH Human [humULIN N 100 UNITS/ML (*)] 46 units SC DAILY 11/05/16 [Last Taken Unknown] Mometasone/Formoterol [Dulera 200 Mcg/5 Mcg Inhaler] 2 puffs IH BID 11/05/16 [ Last Taken Unknown] Shushan-3 Fatty Acids [Fish Oil 1000 mg (*)] 2,000 mg PO BID 11/05/16 [Last Taken Unknown] Ondansetron Odt [Zofran Odt 4 mg (*)] 8 mg PO BID PRN 11/05/16 [Last Taken Unknown] Polyethylene Glycol 3350 [Miralax 17 gm (*)] 17 gm PO DAILY 11/05/16 [Last Taken Unknown] Potassium Cl [Klor-Con 10 meq (RX)] 10 meq PO DAILY 11/05/16 [Last Taken Unknown ] Pravastatin Sodium 80 mg PO DAILY18 11/05/16 [Last Taken 11/04/16] Ranitidine HCl [Zantac] 300 mg PO BIDAC 11/05/16 [Last Taken Unknown] SUMAtriptan [Imitrex 50 MG (*)] 100 mg PO DAILY PRN 11/05/16 [Last Taken Unknown ] Sertraline HCl [Zoloft 100mg (*)] 200 mg PO HS 11/05/16 [Last Taken Unknown] Tamsulosin HCl [Flomax 0.4 MG (*)] 0.4 mg PO DAILY 11/05/16 [Last Taken Unknown] Tiotropium Inhaler [Spiriva Inhaler (RX)] 1 inh IH DAILY 11/05/16 [Last Taken Unknown] Warfarin Sodium [Coumadin 7.5MG (*)] 7.5 mg PO DAILY16 11/05/16 [Last Taken Unknown] oxyCODONE IR [Oxycodone Ir (*)] 10 mg PO Q4HRS PRN 11/05/16 [Last Taken Unknown] oxyCODONE IR [Oxycodone Ir (*)] 20 mg PO Q4HRS PRN 11/05/16 [Last Taken Unknown] Abacavir/Dolutegravir/Lamivudi [Triumeq Tablet] 1 each PO DAILY #30 tablet 11/13 [Last Taken Unknown] Calcium Carb W/Vit D [Calcium Carb W/Vit D 500/200 (*)] 500 mg PO DAILY@0900 tab 11/13/16 [Last Taken Unknown] Discharge Medications: Refer to the Discharge Home Medication list for PRN reason. PICC Care - Routine: N/A - Orders Services needed: Registered Nurse Diet Recommendation: ADA 1800 consistent carb Diet Texture: Regular Texture Diet Wound Care Instructions: Dressing changes daily. Irrigate with sterile NS or may wash with warm water (soap okay) after DC; Fill with Algidex Ag strip packing; Cover with small Allevyn or large bandaid--extra gauze if needed for more absortption of drainage. Additional: held patient's lasix and statin due to renal insufficiency. dc milk of magnesia due to renal function. Resume lasix and statin after labs are checked/ HOLD coumadin today. Recheck INR in a.m. - Labs/Radiology BMP Date: 11/17/16 CBC Date: 11/17/16 PT/INR Date: 11/14/16 (q3d) - Follow Up Care Current Providers and Referrals: Patient,NotPresent [Unknown] - As per Instructions Sharon Shi MD [Medical Doctor] - 12/03/16 12:30 pm Ana Plasencia MD [Medical Doctor] - 12/21/16 10:30 am
--- NOTE | 2016-11-13 13:58 | GDS ---
[f rep st] DISCHARGE SUMMARY DISCHARGE DIAGNOSES: 1. Methicillin-resistant Staphylococcus aureus abdominal wall abscess/ cellulitis. 2. Renal insufficiency with acute kidney injury. 3. Human immunodeficiency virus. 4. Lower extremity edema. 5. Hypokalemia. 6. Chest pain. 7. Hematuria, nonobstructive renal stone. 8. Deep venous thrombosis with supratherapeutic INR. 9. Mild thrombocytopenia. 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 11. Diabetes type 2. 12. Lactic acidosis. CONSULTATIONS DURING HIS STAY: 1. Magdaleno Mccray MD. 2. Bolivar Coronado MD. HISTORY: Briefly, the patient is a 45-year-old male with multiple medical problems, who is immunosuppressed, who presented with multiple complaints. First complaint was abdominal cellulitis that started as painful burning. He has a history of MRSA. In addition, he had complaints of hematuria for 3 weeks. He was recently admitted to [facility] and was told that he has urinary stones. Also, he had ongoing lower extremity swelling. It is noted that he has HIV that was diagnosed in 2002. His last CD4 count was 121, with a negative viral load. He was seen and evaluated by Dr. Magdaleno Mccray, and was treated with vancomycin monotherapy. He improved throughout his stay. He had an abdominal ultrasound performed on November 08, it showed 3 subcutaneous nonspecific fluid collections up to 1.3 cm. Subsequently, he was seen by Dr. Coronado and, on 11/09/2016, he had an incision and drainage of the cellulitis. Today, he is markedly improved. He will need no further antibiotics. He will be discharged to [facility]. Further followup with Dr. Ana Plasencia and Dr. Sharon Shi in the outpatient setting. HOSPITAL COURSE: 1. MRSA abdominal wall abscess cellulitis, much improved. Vancomycin was discontinued yesterday. Meticulous wound dressings will be done at [facility]. 2. Renal insufficiency with acute kidney injury. His creatinine is 1.4. 3. HIV, on Triumeq. 4. Lower extremity edema. An echo was performed. 5. Hypokalemia, stable. 6. Chest pain. He had a Lexiscan that was negative. 7. Hematuria, nonobstructive renal stone. He will follow up with Urology. 8. Deep venous thrombosis. His INR is supratherapeutic. His INR today is 3.42. We will have this rechecked tomorrow morning, and they can resume his Coumadin if this comes down. 9. Mild thrombocytopenia, stable. 10. Reece's. On steroids. He has no evidence of any type of Coke's crisis. 11. Diabetes type 2. Hyperglycemic. His NPH has been increased. 12. Lactic acidosis, resolved. PENDING LABS AND TESTS: None. CONDITION AT DISCHARGE: Stable. Blood pressure is 127/94, heart rate is 70, temperature 36.9 Celsius, O2 saturation on room air 93%. MEDICATIONS AT DISCHARGE: Please see the EMR. He has had multiple changes in his medications. DISCHARGE INSTRUCTIONS: 1. Wound dressings have been written out for detail. 2. To follow up with Dr. Shi. 3. To follow up with Dr. Ana Plasencia. 4. If he develops fever, chills, chest pain, or shortness of breath, return to the ER. Greater than 30 minutes discharging and coordinating care. /[id number]/MODL MTDD
== END 2016-11-13 15:07 | DRG 603 ==
LOC: EDUNIT# → F1N 12:54 → F3E 17:45
PROVIDERS: ADMIT Student in an Organized Health Care Education/Training Program; ATTEND Internal Medicine
PROC: 3E03329 Introduction of Other Anti-infective into Peripheral Vein, Percutaneous Approach (ICD-10-PCS; 2016-11-05)
PROC: 0H97XZZ Drainage of Abdomen Skin, External Approach (ICD-10-PCS; principal; 2016-11-09 15:30)
DX: L02.211 Cutaneous abscess of abdominal wall (principal); B95.62 Methicillin resistant Staphylococcus aureus infection as the cause of diseases classified elsewhere; Z21 Asymptomatic human immunodeficiency virus [HIV] infection status; N28.9 Disorder of kidney and ureter, unspecified; N17.9 Acute kidney failure, unspecified; R31.9 Hematuria, unspecified; N20.1 Calculus of ureter; E11.65 Type 2 diabetes mellitus with hyperglycemia; E87.2 Acidosis; E87.6 Hypokalemia; I82.431 Acute embolism and thrombosis of right popliteal vein; R60.9 Edema, unspecified; R07.9 Chest pain, unspecified; D69.6 Thrombocytopenia, unspecified; E27.1 Primary adrenocortical insufficiency; D62 Acute posthemorrhagic anemia; I10 Essential (primary) hypertension; J45.909 Unspecified asthma, uncomplicated; G40.909 Epilepsy, unspecified, not intractable, without status epilepticus; F43.10 Post-traumatic stress disorder, unspecified; E66.9 Obesity, unspecified; Z68.37 Body mass index [BMI] 37.0-37.9, adult; Z87.442 Personal history of urinary calculi; Z86.14 Personal history of Methicillin resistant Staphylococcus aureus infection; Z79.4 Long term (current) use of insulin; Z79.01 Long term (current) use of anticoagulants; Z79.899 Other long term (current) drug therapy; Z88.0 Allergy status to penicillin; Z79.52 Long term (current) use of systemic steroids
CPT/HCPCS: 96365; A9500; J0690; J1170; J1650; J1815; J2250; J2405; J2704; J2785; J3010; J3370

== ENCOUNTER 2017-04-05 10:29 | Emergency (ER) | payer MEDICAID ==
--- NOTE | 2017-04-05 10:57 | EDPHY ---
H & P Time Seen by Provider: 04/05/17 10:33 - Medical/Surgical History Hx Asthma: Yes Hx Chronic Respiratory Disease: Yes Hx Diabetes: Yes Hx Cardiac Disease: No Hx Renal Disease: Yes Hx Cirrhosis: No Hx Alcoholism: No Hx HIV/AIDS: Yes Hx Splenectomy or Spleen Trauma: No Other PMH: HIV, addisons, DVT, DM, HTN, asthma, seizure disorder, appe, brain surg, hernia repair, hip replacement, knee/ankle surgery, hand/elbow surgery - Social History Smoking Status: Never smoked Constitutional: Initial Vital Signs Temperature (C) 36.9 C 04/05/17 10:30 Heart Rate 66 04/05/17 10:30 Respiratory Rate 13 04/05/17 10:30 Blood Pressure 137/90 H 04/05/17 10:30 O2 Sat (%) 96 04/05/17 10:30 O2 Delivery Mode Room Air Allergies/Adverse Reactions: amlodipine Allergy (Verified 11/05/16 10:41) celecoxib Allergy (Verified 11/05/16 10:41) doxycycline Allergy (Verified 11/05/16 10:41) efavirenz Allergy (Verified 11/05/16 10:42) gabapentin Allergy (Verified 11/05/16 10:42) latex Allergy (Verified 11/05/16 10:41) nortriptyline Allergy (Verified 11/05/16 10:42) NSAIDS (Non-Steroidal Anti-Inflamma Allergy (Verified 11/05/16 10:42) oats Allergy (Verified 11/05/16 10:42) Penicillins Allergy (Verified 11/05/16 10:43) prednisone Allergy (Verified 11/05/16 10:43) prochlorperazine Allergy (Verified 11/05/16 10:43) ragweed pollen Allergy (Verified 11/05/16 10:43) Home Medications: Medication Instructions Recorded Acetaminophen [Tylenol 325mg (*)] 650 mg PO Q4HRS PRN 11/05/16 Albuterol [Proventil Inhaler HFA 2 puffs IH Q4 PRN 11/05/16 (*)] Albuterol [Proventil Neb] 3 ml IH Q4HRS PRN 11/05/16 Ascorbic Acid [Vitamin C 500 mg 500 mg PO DAILY 11/05/16 (*)] Atenolol [Tenormin 25 mg (*)] 25 mg PO BID 11/05/16 Bisacodyl [Dulcolax] 10 mg RC DAILY PRN 11/05/16 Cholecalciferol Vit D3 [Vitamin D3 1,000 units PO DAILY 11/05/16 (*)] Dexamethasone [Decadron 4mg/ml inj 4 mg IM DAILY PRN 11/05/16 (*)] Diazepam [DIASTAT ACUDIAL] 1 each RC DAILY PRN 11/05/16 Diazepam [Valium 5 MG (*)] 5 mg PO Q12 PRN 11/05/16 Diazepam [Valium 5 MG (*)] 5 mg PO TID 11/05/16 FLUDROCORTISONE ACETATE 0.1 mg PO DAILY 11/05/16 Fenofibrate [Lofibra] 160 mg PO HS 11/05/16 Ferrous Sulfate [Ferrous Sulf 325 325 mg PO DAILY 11/05/16 MG (*)] Furosemide [Lasix 40 MG (*)] 40 mg PO DAILY 11/05/16 Herbals/Supplements -Info Only 1 each PO DAILY 11/05/16 Hydrocortisone [Cortef] 5 mg PO 1200,1500 11/05/16 Hydrocortisone [Cortef] 15 mg PO DAILY@0800 11/05/16 Hyoscyamine Sulfate [Levsin, 0.125 mg PO Q8HRS PRN 11/05/16 Hyomax-Sl 0.125 mg (*)] Insulin Aspart [novoLOG] 0 unit SQ TIDMEAL 11/05/16 Insulin NPH Human [humULIN N 100 40 units SC DAILY@18 11/05/16 UNITS/ML (*)] Insulin NPH Human [humULIN N 100 46 units SC DAILY 11/05/16 UNITS/ML (*)] Mometasone/Formoterol [Dulera 200 2 puffs IH BID 11/05/16 Mcg/5 Mcg Inhaler] [place]-3 Fatty Acids [Fish Oil 1000 2,000 mg PO BID 11/05/16 mg (*)] Ondansetron Odt [Zofran Odt 4 mg 8 mg PO BID PRN 11/05/16 (*)] Polyethylene Glycol 3350 [Miralax 17 gm PO DAILY 11/05/16 17 gm (*)] Potassium Cl [Klor-Con 10 meq (RX)] 10 meq PO DAILY 11/05/16 Pravastatin Sodium 80 mg PO DAILY18 11/05/16 Ranitidine HCl [Zantac] 300 mg PO BIDAC 11/05/16 SUMAtriptan [Imitrex 50 MG (*)] 100 mg PO DAILY PRN 11/05/16 Sertraline HCl [Zoloft 100mg (*)] 200 mg PO HS 11/05/16 Tamsulosin HCl [Flomax 0.4 MG (*)] 0.4 mg PO DAILY 11/05/16 Tiotropium Inhaler [Spiriva 1 inh IH DAILY 11/05/16 Inhaler (RX)] Warfarin Sodium [Coumadin 7.5MG 7.5 mg PO DAILY16 11/05/16 (*)] oxyCODONE IR [Oxycodone Ir (*)] 10 mg PO Q4HRS PRN 11/05/16 oxyCODONE IR [Oxycodone Ir (*)] 20 mg PO Q4HRS PRN 11/05/16 Abacavir/Dolutegravir/Lamivudi 1 each PO DAILY #30 tablet 11/13/16 [Triumeq Tablet] Calcium Carb W/Vit D [Calcium Carb 500 mg PO DAILY@0900 tab 11/13/16 W/Vit D 500/200 (*)] Medical Decision Making ED Course/Re-evaluation: CHIEF COMPLAINT: Post-ictal HISTORY OF PRESENT ILLNESS: This patient is a 46 y/o male with history of Gaston's disease presenting with dizziness and fatigue following non-epileptic seizure activity shortly prior to arrival. He has a mammogram in this building earlier this morning, and while waiting for his ride, he became increasingly dizzy. He checked in to the emergency department and while in the waiting room, he had a seizure. He has history of seizures and states this is a typical presentation for him. He currently feels well, but fatigued. 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 He states he is compliant with his medications as far as he knows, as they are administered by his assisted living facility. He denies any injuries or other complaints. REVIEW OF SYSTEMS: A 10 point review of systems was performed and is negative with the exception of the elements mentioned in the history of present illness. PHYSICAL EXAM: HR, BP, O2 Sat, RR. Temp noted General Appearance: Alert, well hydrated, appropriate, and non-toxic appearing. Head: Atraumatic without scalp tenderness or obvious injury Eyes: Pupils equal, round, reactive to light and accommodation, EOMI, no trauma , no injection. Ears: Clear bilaterally, no perforation, normal landmarks Nose: Atraumatic, no rhinorrhea, clear. Throat: There is no erythema or exudates, no lesions, normal tonsils, mucus membranes moist. Neck: Supple, 2+ carotid upstroke, nontender, no lymphadenopathy. Respiratory: No retractions, no distress, no wheezes, and no accessory muscle use. Lungs are clear to auscultation bilaterally. Cardiovascular: Regular rate and rhythm, no murmurs, rubs, or gallops. Bilateral carotid, radial, dorsalis pedis, and posterior tibial pulses intact. Good capillary refill all extremities. Gastrointestinal: Abdomen is soft, nontender, non-distended, no masses, no rebound, no guarding, no peritoneal signs. Musculoskeletal: Normal active ROM of all extremities, atraumatic. Neurological: Alert, appropriate, and interactive. The patient has normal DTRs and non-focal cranial nerves, motor, sensory, and cerebellar exam. Skin: No rashes, good turgor, no nodules on palpation. Past medical history: HIV, Gaston's, Diabetes Mellitus, Hypertension, Asthma, Seizure disorder Past surgical history: Appendectomy, Brain surgery, Hernia repair, Multiple orthopedic surgeries Family history: Noncontributory Social history: Lives in [place]. . Disabled. DIFFERENTIAL DIAGNOSIS: The differential diagnosis for the patient's seizure included but was not limited to electrolyte abnormality, alcohol withdrawal, medication noncompliance , head injury, WILTON WEAVER structural abnormality, and break through seizure. MEDICAL DECISION MAKIN46 y/o male with Reece's disease and nonepileptic seizure disorder presents with fatigue following a seizure in the waiting room shortly prior to arrival. Administered 100mg IV Hydrocortisone stress dose. I-stat completed. Labs within normal limits. The patient is feeling improved. He has no further complaints at this time. Plan to discharge home in good condition. He will follow up with his regular care providers for further concerns and for discussion of his medication regimen. Return precautions discussed. The patient is comfortable with this plan. - Data Points Laboratory Results: 04/05/17 10:47 POC Hgb 12.9 gm/dL L gm/dL (13.7-17.5) POC Hct 38 % L % (40-51) POC Sodium 142 mEq/L mEq/L (134-144) POC Potassium 4.0 mEq/L mEq/L (3.3-5.0) POC Chloride 108 mEq/L mEq/L (97-110) POC BUN 19 mg/dL mg/dL (7-23) POC Creatinine 1.0 mg/dL mg/dL (0.7-1.3) POC Glucose 262 mg/dL H mg/dL (70-100) Medications Given: Discontinued Medications Hydrocortisone (Solucortef) 100 mg IVP EDNOW ONE Stop: 04/05/17 11:10 Last Admin: 04/05/17 11:20 Dose: 100 mg Point of Care Test Results: 04/05/17 10:47 POC Sodium 142 POC Potassium 4.0 POC Chloride 108 POC BUN 19 POC Creatinine 1.0 POC Glucose 262 H Departure - Departure Disposition: Home, Routine, Self-Care Clinical Impression: Postictal state Condition: Good Instructions: Nonepileptic Seizures (ED) Additional Instructions: 1. Follow up with your regular providers for continued evaluation and discussion of your medication regimen. 2. Return to the emergency department for repeat seizures or other worsening of condition. Referrals: Nubia Sandoval, [employer] [Primary Care Provider] - As per Instructions Report Scribed for: Magdaleno Tinajero Report Scribed by: Krystal Colbert Date of Report: 04/05/17 Time of Report: 11:11
[2017-04-05 11:06] VITALS: O2SAT 96
[2017-04-05] MEDS ORDERED: HYDROCORTISONE 100 MG/2 ML VIAL IVP ONE (11:09)
[2017-04-05 11:28] VITALS: BP 152/83; PULSE 60; RESP 16; TEMP 97.5
== END 2017-04-05 11:40 | disposition home or self-care (01) ==
DX: G40.409 Other generalized epilepsy and epileptic syndromes, not intractable, without status epilepticus (principal); J45.909 Unspecified asthma, uncomplicated; E11.9 Type 2 diabetes mellitus without complications; I10 Essential (primary) hypertension; Z79.01 Long term (current) use of anticoagulants; Z91.040 Latex allergy status; Z79.4 Long term (current) use of insulin
CPT/HCPCS: 82947-QW; 96374; G0204

== ENCOUNTER → 2017-04-05 | Outpatient (CLI) | payer MEDICAID | LOC: FIMAGING 08:43 | PROVIDERS: ATTEND Internal Medicine | DX: Z12.39 Encounter for other screening for malignant neoplasm of breast (principal); N62 Hypertrophy of breast | CPT/HCPCS: G0204 ==

== ENCOUNTER 2017-11-12 18:35 | Emergency (ER) | payer MEDICAID ==
--- NOTE | 2017-11-12 18:36 | EDPHY ---
H & P Time Seen by Provider: 11/12/17 18:36 HPI/ROS: CHIEF COMPLAINT: Questionable seizure HISTORY OF PRESENT ILLNESS: The patient presents to the ED after a questionable seizure. The patient has a history of nonepileptic seizures. He is not on any medications. He reportedly was being transferred back to his residence after a prolonged appointment at MRI. The patient reported he was "stressed" because the motor coach bus driver was angry at him given the duration of his MRI. The patient reportedly developed "twitching" which he remembers. There is no tongue bite. There is no incontinence. There is no history of fall. REVIEW OF SYSTEMS: A comprehensive 10 point review of systems is otherwise negative aside from elements mentioned in the history of present illness. Source: Patient Exam Limitations: No limitations - Medical/Surgical History Hx Asthma: Yes Hx Chronic Respiratory Disease: Yes Hx Diabetes: Yes Hx Cardiac Disease: No Hx Renal Disease: Yes Hx Cirrhosis: No Hx Alcoholism: No Hx HIV/AIDS: Yes Hx Splenectomy or Spleen Trauma: No Other PMH: HIV, addisons, DVT, DM, HTN, asthma, seizure disorder, appe, brain surg, hernia repair, hip replacement, knee/ankle surgery, hand/elbow surgery - Social History Smoking Status: Never smoked - Physical Exam Exam: General Appearance: Alert, no distress Eyes: Pupils equal and round no pallor or injection ENT, Mouth: Mucous membranes moist Respiratory: There are no retractions, lungs are clear to auscultation Cardiovascular: Regular rate and rhythm Gastrointestinal: Abdomen is soft and nontender, no masses, bowel sounds normal Neurological: A&O, normal motor function, normal sensory exam, normal cranial nerves Skin: Warm and dry, no rashes Musculoskeletal: Neck is supple nontender Extremities: symmetrical, full range of motion Constitutional: Initial Vital Signs Temperature (C) 38 C 11/12/17 18:39 Heart Rate 73 11/12/17 18:39 Respiratory Rate 16 11/12/17 18:39 Blood Pressure 189/113 H 11/12/17 18:39 O2 Sat (%) 95 11/12/17 18:39 O2 Delivery Mode Room Air Allergies/Adverse Reactions: amlodipine Allergy (Verified 11/12/17 18:38) celecoxib Allergy (Verified 11/12/17 18:38) doxycycline Allergy (Verified 11/12/17 18:38) efavirenz Allergy (Verified 05/15/18 18:38) gabapentin Allergy (Verified 11/12/17 18:38) latex Allergy (Verified 11/12/17 18:38) nortriptyline Allergy (Verified 11/12/17 18:38) NSAIDS (Non-Steroidal Anti-Inflamma Allergy (Verified 11/12/17 18:38) oats Allergy (Verified 11/12/17 18:38) Penicillins Allergy (Verified 11/12/17 18:38) prednisone Allergy (Verified 11/12/17 18:38) prochlorperazine Allergy (Verified 11/12/17 18:38) ragweed pollen Allergy (Verified 11/12/17 18:38) Home Medications: Medication Instructions Recorded Acetaminophen [Tylenol 325mg (*)] 650 mg PO Q4HRS PRN 11/05/16 Albuterol [Proventil Inhaler HFA 2 puffs IH Q4 PRN 11/05/16 (*)] Albuterol [Proventil Neb] 3 ml IH Q4HRS PRN 11/05/16 Ascorbic Acid [Vitamin C 500 mg 500 mg PO DAILY 11/05/16 (*)] Atenolol [Tenormin 25 mg (*)] 25 mg PO BID 11/05/16 Bisacodyl [Dulcolax] 10 mg RC DAILY PRN 11/05/16 Cholecalciferol Vit D3 [Vitamin D3 1,000 units PO DAILY 11/05/16 (*)] Dexamethasone [Decadron 4mg/ml inj 4 mg IM DAILY PRN 11/05/16 (*)] Diazepam [DIASTAT ACUDIAL] 1 each RC DAILY PRN 11/05/16 Diazepam [Valium 5 MG (*)] 5 mg PO Q12 PRN 11/05/16 Diazepam [Valium 5 MG (*)] 5 mg PO TID 11/05/16 FLUDROCORTISONE ACETATE 0.1 mg PO DAILY 11/05/16 Fenofibrate [Lofibra] 160 mg PO HS 11/05/16 Ferrous Sulfate [Ferrous Sulf 325 325 mg PO DAILY 11/05/16 MG (*)] Furosemide [Lasix 40 MG (*)] 40 mg PO DAILY 11/05/16 Herbals/Supplements -Info Only 1 each PO DAILY 11/05/16 Hydrocortisone [Cortef] 5 mg PO 1200,1500 11/05/16 Hydrocortisone [Cortef] 15 mg PO DAILY@0800 11/05/16 Hyoscyamine Sulfate [Levsin, 0.125 mg PO Q8HRS PRN 11/05/16 Hyomax-Sl 0.125 mg (*)] Insulin Aspart [novoLOG] 0 unit SQ TIDMEAL 11/05/16 Insulin NPH Human [humULIN N 100 40 units SC DAILY@18 11/05/16 UNITS/ML (*)] Insulin NPH Human [humULIN N 100 46 units SC DAILY 11/05/16 UNITS/ML (*)] Mometasone/Formoterol [Dulera 200 2 puffs IH BID 11/05/16 Mcg/5 Mcg Inhaler] [place]-3 Fatty Acids [Fish Oil 1000 2,000 mg PO BID 11/05/16 mg (*)] Ondansetron Odt [Zofran Odt 4 mg 8 mg PO BID PRN 11/05/16 (*)] Polyethylene Glycol 3350 [Miralax 17 gm PO DAILY 11/05/16 17 gm (*)] Potassium Cl [Klor-Con 10 meq (RX)] 10 meq PO DAILY 11/05/16 Pravastatin Sodium 80 mg PO DAILY18 11/05/16 Ranitidine HCl [Zantac] 300 mg PO BIDAC 11/05/16 SUMAtriptan [Imitrex 50 MG (*)] 100 mg PO DAILY PRN 11/05/16 Sertraline HCl [Zoloft 100mg (*)] 200 mg PO HS 11/05/16 Tamsulosin HCl [Flomax 0.4 MG (*)] 0.4 mg PO DAILY 11/05/16 Tiotropium Inhaler [Spiriva 1 inh IH DAILY 11/05/16 Inhaler (RX)] Warfarin Sodium [Coumadin 7.5MG 7.5 mg PO DAILY16 11/05/16 (*)] oxyCODONE IR [Oxycodone Ir (*)] 10 mg PO Q4HRS PRN 11/05/16 oxyCODONE IR [Oxycodone Ir (*)] 20 mg PO Q4HRS PRN 11/05/16 Abacavir/Dolutegravir/Lamivudi 1 each PO DAILY #30 tablet 11/13/16 [Triumeq Tablet] Calcium Carb W/Vit D [Calcium Carb 500 mg PO DAILY@0900 tab 11/13/16 W/Vit D 500/200 (*)] Medical Decision Making ED Course/Re-evaluation: Patient presents to the ED after a likely pseudo-seizure. I do not feel that further workup is indicated at this point time. The patient does have a history of nonepileptic seizures. Departure - Departure Disposition: Home, Routine, Self-Care Clinical Impression: Nonepileptic episode Condition: Good Instructions: Nonepileptic Seizures (ED) Additional Instructions: Follow up with your primary care provider as needed. Referrals: NONE *PRIMARY CARE P,. [Primary Care Provider] - As per Instructions
[2017-11-12 18:54] VITALS: BP 156/100
== END 2017-11-12 21:05 | disposition home or self-care (01) ==
DX: G40.89 Other seizures (principal); B20 Human immunodeficiency virus [HIV] disease; E11.9 Type 2 diabetes mellitus without complications; J45.909 Unspecified asthma, uncomplicated; Z79.01 Long term (current) use of anticoagulants; Z79.4 Long term (current) use of insulin; Z91.040 Latex allergy status
CPT/HCPCS: A9585

== ENCOUNTER → 2017-11-12 | Outpatient (CLI) | payer MEDICAID ==
[~2017-11-12] MED LIST: GADOBUTROL 10 ML VIAL IVP ONE
== END ==
LOC: FIMAGING 15:39
PROVIDERS: ATTEND Internal Medicine
DX: M25.551 Pain in right hip (principal); M76.01 Gluteal tendinitis, right hip
CPT/HCPCS: A9585

== ENCOUNTER 2018-03-30 09:57 | Inpatient (IN) | payer MEDICAID ==
--- NOTE | 2018-03-30 10:01 | EDPHY ---
H & P Stated Complaint: L foot infection Time Seen by Provider: 03/30/18 10:01 HPI/ROS: CHIEF COMPLAINT: "I have an infection on my foot" HISTORY OF PRESENT ILLNESS: 47-year-old male arrives via ambulance from his shelter facility in [place], [place] complaining of 4 days of progressive erythema, tenderness to the dorsum of his left foot after he sustained an abrasion to it 7 days ago when his foot scraped against the bottom of the door his shelter facility Patient has a history of cutaneous MRSA, history of HIV, history of diabetes. Positive fever 2 days ago 102.4 F. Nondetectable viral load most recent evaluation Denies: Chills, nausea, vomiting, flu-like symptoms, myalgias PRIMARY CARE PROVIDER: Dr. Ana Plasencia and Dr. Sharon Shi REVIEW OF SYSTEMS: 10 systems reviewed and negative with the exception of the elements mentioned in the history of present illness PAST MEDICAL & SURGICAL HISTORY: HIV-positive. Nondetectable viral load. Diabetes. Reece's disease. SOCIAL HISTORY: Lives at shelter [facility] PHYSICAL EXAM (Prior to examination, patient consented to physical exam, hands were washed and my usual and customary physical exam procedures followed) 1) GENERAL: Well-developed, well-nourished, alert and oriented. Appears to be in no acute distress. 2) HEAD: Normocephalic, atraumatic 3) HEENT: Pupils equal, round, reactive to light bilaterally. Sclera anicteric. Nasopharynx, oropharynx, clear, no lesions. MoistDry mucous membranes. Ears bilaterally with normal tympanic membranes. 4) NECK: Full range of motion, no meningeal signs. 5) LUNGS: Clear auscultation bilaterally, no wheezes, no rhonchi, no retractions. 6) HEART: Regular rate and rhythm, no murmur, no heave, no gallop. 7) ABDOMEN: No guarding, no rebound, no focal tenderness, negative McBurney's, negative Sagastume's, negative Rovsing's, negative peritoneal sign, 8) MUSCULOSKELETAL: Left lower extremity: Linear abrasion with surrounding erythema, soft tissue swelling, tenderness. No lymphangitic streaking. No crepitus. Unable to bear weight secondary to pain. Negative Homans no palpable cord. Otherwise, Moving all extremities, no focal areas of tenderness , no obvious trauma. No peripheral edema or discoloration. 9) BACK: No CVA tenderness, no midline vertebral tenderness, no fluctuance, no step-off, no obvious trauma, no visual or palpable abnormality. 10) SKIN: No rash, no petechiae. 11) Psychiatric: Patient is oriented X 3, there is no agitation. DIFFERENTIAL DIAGNOSIS: In no particular order including but not limited to necrotizing fasciitis, cellulitis, abscess - Medical/Surgical History Hx Asthma: Yes Hx Chronic Respiratory Disease: Yes Hx Diabetes: Yes Hx Cardiac Disease: No Hx Renal Disease: Yes Hx Cirrhosis: No Hx Alcoholism: No Hx HIV/AIDS: Yes Hx Splenectomy or Spleen Trauma: No Other PMH: HIV, addisons, DVT, DM, HTN, asthma, seizure disorder, appe, brain surg, hernia repair, hip replacement, knee/ankle surgery, hand/elbow surgery - Social History Smoking Status: Never smoked Constitutional: Initial Vital Signs Temperature (C) 37.3 C 03/30/18 09:58 Heart Rate 69 03/30/18 09:58 Respiratory Rate 18 03/30/18 09:58 Blood Pressure 207/109 H 03/30/18 09:58 O2 Sat (%) 95 03/30/18 09:58 O2 Delivery Mode Room Air Allergies/Adverse Reactions: amlodipine Allergy (Verified 03/30/18 10:02) celecoxib Allergy (Verified 03/30/18 10:02) doxycycline Allergy (Verified 03/30/18 10:02) efavirenz Allergy (Verified 03/30/18 10:02) gabapentin Allergy (Verified 03/30/18 10:02) latex Allergy (Verified 03/30/18 10:02) nortriptyline Allergy (Verified 03/30/18 10:02) NSAIDS (Non-Steroidal Anti-Inflamma Allergy (Verified 03/30/18 10:02) oats Allergy (Verified 03/30/18 10:02) Penicillins Allergy (Verified 03/30/18 10:02) prednisone Allergy (Verified 03/30/18 10:02) prochlorperazine Allergy (Verified 03/30/18 10:02) ragweed pollen Allergy (Verified 03/30/18 10:02) Home Medications: Medication Instructions Recorded Acetaminophen [Tylenol 325mg (*)] 650 mg PO Q4HRS PRN 11/05/16 Albuterol [Proventil Inhaler HFA 2 puffs IH Q4 PRN 11/05/16 (*)] Albuterol [Proventil Neb] 3 ml IH Q4HRS PRN 11/05/16 Bisacodyl [Dulcolax] 10 mg RC DAILY PRN 11/05/16 Cholecalciferol Vit D3 [Vitamin D3 1,000 units PO DAILY 11/05/16 (*)] Dexamethasone [Decadron 4mg/ml inj 4 mg IM DAILY PRN 11/05/16 (*)] Diazepam [DIASTAT ACUDIAL] 20 mg RC DAILY PRN 11/05/16 Diazepam [Valium 5 MG (*)] 5 mg PO TID 11/05/16 FLUDROCORTISONE ACETATE 0.1 mg PO DAILY 11/05/16 Fenofibrate [Lofibra] 160 mg PO HS 11/05/16 Ferrous Sulfate [Ferrous Sulf 325 325 mg PO DAILY 11/05/16 MG (*)] Hydrocortisone [Cortef] 5 mg PO DAILY@1500 11/05/16 Hydrocortisone [Cortef] 15 mg PO DAILY@0800 11/05/16 Insulin Aspart [novoLOG] 0 unit SQ TIDMEAL 11/05/16 [place]-3 Fatty Acids [Fish Oil 1000 1,000 mg PO BID 11/05/16 mg (*)] Ondansetron Odt [Zofran Odt 4 mg 8 mg PO BID PRN 11/05/16 (*)] Polyethylene Glycol 3350 [Miralax 17 gm PO DAILY 11/05/16 17 gm (*)] Potassium Cl [Klor-Con 10 meq (RX)] 10 meq PO DAILY 11/05/16 Pravastatin Sodium 80 mg PO DAILY 11/05/16 SUMAtriptan [Imitrex 50 MG (*)] 100 mg PO DAILY PRN 11/05/16 Tamsulosin HCl [Flomax 0.4 MG (*)] 0.4 mg PO DAILY 11/05/16 Warfarin Sodium [Coumadin 7.5MG 7.5 mg PO TUTHFRSA@1200 11/05/16 (*)] oxyCODONE IR [Oxycodone Ir (*)] 20 mg PO Q6 PRN 11/05/16 Calcium Carb W/Vit D [Calcium Carb 500 mg PO DAILY@0900 tab 11/13/16 W/Vit D 500/200 (*)] Abacavir/Dolutegravir/Lamivudi 1 each PO DAILY@1600 03/30/18 [Triumeq Tablet] Dextrose Oral Gel [Glucose Gel (*)] 15 gm PO ONCE PRN 03/30/18 Famotidine [Pepcid 20 MG (*)] 20 mg PO BID 03/30/18 Glucagon,Human Recombinant 1 mg IJ PRN PRN 03/30/18 [Glucagon Emergency Kit] Insulin Detemir [Levemir] 45 unit SQ BID 03/30/18 Lisinopril [Zestril 10 mg (*)] 10 mg PO DAILY 03/30/18 Loratadine 10 mg PO DAILY 03/30/18 Metoprolol Tartrate [Lopressor 100 100 mg PO BID 03/30/18 mg (*)] Nitroglycerin [Nitrostat 0.4 mg 0.4 mg SL Q5M PRN 03/30/18 (*)] Phenylephrine/Shk Lv/Mo/Pet,Wh 1 cori [place] Q6 PRN 03/30/18 [Preparation H Oint] Vaporub 1 cori TP Q4 PRN 03/30/18 Warfarin Sodium [Coumadin 5MG (*)] 5 mg PO SUMOWE@1200 03/30/18 guaiFENesin [Guaifenesin] 200 mg PO Q4 PRN 03/30/18 guaiFENesin [Mucinex 600 MG (*)] 600 mg PO BID PRN 03/30/18 hydrOXYzine HCL [Vistaril] 10 mg PO Q8 PRN 03/30/18 Medical Decision Making - Diagnostics Imaging Results: Imaging Impressions Foot X-Ray 03/30/18 10:07 Impression: Negative left foot radiographs. Images reviewed myself ED Course/Re-evaluation: 10:12 a.m.: I reviewed old patient's old medical records. Will obtain laboratory studies. He has history of cutaneous MRSA in addition to his history of HIV and diabetes.. Will plan on IV vancomycin and plan on admission. I saw this patient independently based on established practice protocols. Care of patient under supervision of secondary supervising physician Dr Leonard Bhatti with whom I discussed case. 11:06 a.m.: Consultation with hospitalist, Shreya, admit to Dr. Ana Plasencia - Data Points Laboratory Results: Laboratory Results 03/30/18 10:26 03/30/18 10:26 03/30/18 03/30/18 03/30/18 10: 10:26 10:26 WBC 5.16 10^3/uL 10^3/uL (3.80-9.50) RBC 4.51 10^6/uL 10^6/uL (4.40-6.38) Hgb 13.1 g/dL L g/dL (13.7-17.5) Hct 38.4 % L % (40.0-51.0) MCV 85.1 fL fL (81.5-99.8) MCH 29.0 pg pg (27.9-34.1) MCHC 34.1 g/dL g/dL (32.4-36.7) RDW 14.0 % % (11.5-15.2) Plt Count 154 10^3/uL 10^3/uL (150-400) MPV 9.2 fL fL (8.7-11.7) Neut % (Auto) 70.2 % % (39.3-74.2) Lymph % (Auto) 23.3 % % (15.0-45.0) [place] % (Auto) 4.5 % % (4.5-13.0) Eos % (Auto) 1.2 % % (0.6-7.6) Baso % (Auto) 0.4 % % (0.3-1.7) Nucleat RBC Rel Count 0.0 % % (0.0-0.2) Absolute Neuts (auto) 3.63 10^3/uL 10^3/uL (1.70-6.50) Absolute Lymphs (auto) 1.20 10^3/uL 10^3/uL (1.00-3.00) Absolute Monos (auto) 0.23 10^3/uL L 10^3/uL (0.30-0.80) Absolute Eos (auto) 0.06 10^3/uL 10^3/uL (0.03-0.40) Absolute Basos (auto) 0.02 10^3/uL 10^3/uL (0.02-0.10) Absolute Nucleated RBC 0.00 10^3/uL 10^3/uL (0-0.01) Immature Gran % 0.4 % % (0.0-1.1) Immature Gran # 0.02 10^3/uL 10^3/uL (0.00-0.10) PT 21.6 SEC H SEC (12.0-15.0) INR 1.87 H (0.83-1.16) APTT 38.5 SEC H SEC (23.0-38.0) VBG Lactic Acid Sodium 142 mEq/L mEq/L (135-145) Potassium 3.9 mEq/L mEq/L (3.3-5.0) Chloride 107 mEq/L mEq/L (97-110) Carbon Dioxide 25 mEq/l mEq/l (22-31) Anion Gap 10 mEq/L mEq/L (8-16) BUN 18 mg/dL mg/dL (7-23) Creatinine 1.1 mg/dL mg/dL (0.7-1.3) Estimated GFR > 60 Glucose 171 mg/dL H mg/dL (70-100) Calcium 9.4 mg/dL mg/dL (8.5-10.4) Total Bilirubin 0.4 mg/dL mg/dL (0.1-1.4) 03/30/18 10:26 WBC RBC Hgb Hct MCV MCH MCHC RDW Plt Count MPV Neut % (Auto) Lymph % (Auto) [place] % (Auto) Eos % (Auto) Baso % (Auto) Nucleat RBC Rel Count Absolute Neuts (auto) Absolute Lymphs (auto) Absolute Monos (auto) Absolute Eos (auto) Absolute Basos (auto) Absolute Nucleated RBC Immature Gran % Immature Gran # PT INR APTT VBG Lactic Acid 1.3 mmol/L mmol/L (0.7-2.1) Sodium Potassium Chloride Carbon Dioxide Anion Gap BUN Creatinine Estimated GFR Glucose Calcium Total Bilirubin Medications Given: Hydrocortisone (Cortef) 5 mg PO DAILY@1500 NATALI Stop: 09/26/18 14:59 Last Admin: 03/30/18 15:05 Dose: 5 mg Oxycodone HCl (Oxycodone Ir) 20 mg PO Q6 PRN PRN Reason: pain, breakthrough level Stop: 04/09/18 13:11 Last Admin: 03/30/18 13:38 Dose: 20 mg Discontinued Medications Vancomycin HCl 1.5 gm/ (Dextrose) 250 mls @ 166.67 mls/hr IV EDNOW ONE PRN Reason: Protocol Stop: 03/30/18 12:40 Last Admin: 03/30/18 12:10 Dose: 250 mls Departure - Departure Disposition: Footlos angeless Inpatient Acute Clinical Impression: Cellulitis of left foot, History of HIV infection Condition: Fair
[2018-03-30 10:35] LABS: PLATELET COUNT 154 10^3/uL (150-400)
[2018-03-30 10:49] LABS: INR 1.87 (0.83-1.16); PROTIME(PATIENT) 21.6 SEC (12.0-15.0)
[2018-03-30] MEDS ORDERED: VANCOMYCIN 1.5 GM in D5W 250 ML IV ONE (11:11)
[2018-03-30] MEDS ORDERED: BISACODYL 10 MG SUPP PR PRN (13:12)
[2018-03-30] MEDS ORDERED: NITROGLYCERIN 0.4 MG BTL SL PRN (13:12)
[2018-03-30] MEDS ORDERED: ONDANSETRON DISINTEGRATING 4 MG TAB PO PRN (13:12)
[2018-03-30] MEDS ORDERED: ALBUTEROL 60 PUFFS/8 GM MDI IH PRN (13:12)
[2018-03-30] MEDS ORDERED: ALBUTEROL 3 ML DEYVIAL IH PRN (13:12)
[2018-03-30] MEDS ORDERED: DEXAMETHASONE 4 MG/ML VIAL IM PRN (13:12)
[2018-03-30] MEDS ORDERED: GLUCOSE-INSTA 15 GM TUBE PO PRN (13:12)
[2018-03-30] MEDS ORDERED: hydrOXYzine HCL 10 MG TAB PO PRN (13:12)
[2018-03-30] MEDS ORDERED: ACETAMINOPHEN 325 MG TAB PO PRN (13:12)
[2018-03-30] MEDS ORDERED: SUMAtriptan 50 MG TAB PO PRN (13:12)
[2018-03-30] MEDS: oxyCODONE IR 5 MG TAB PO PRN ×2 (13:38→19:57)
--- NOTE | 2018-03-30 14:07 | ASMTCMCOM ---
CM Note CM Note Notes: Pt admtd for left foot cellulitis. Pt has a hx of MRSA, DM, HIV and Reece's disease. Pt lives at [facility] ([phone]) in [place]. CM called and notified staff of pt's admission. Pt's PCP is Dr Ana Plasencia and he is also followed by Dr Sharon Shi at the [facility]. Anticipate pt will DC back to [facility] when stable. CM to follow. Date Signed: 03/30/2018 02:06 PM Electronically Signed By:Sofi Betancourt RN
--- NOTE | 2018-03-30 14:12 | ASMTLACE ---
RICKEY Acuity / Level of Answers: Yes Care: Did the patient have an inpatient admission? Comorbidities - select Answers: Chronic pulmonary disease all that apply Diabetes (uncontrolled or controlled) Opioid dependence / Chronic pain Other Notes: Asthma, HTN, DVT, HIV, Add mauri's disease, seizure d/o, hernia repair, ort ho surgeries, brain surger y # of Emergency department Answers: 1-2 visits in the last 6 months Score: 12 Date Signed: 03/30/2018 02:11 PM Electronically Signed By:Sofi Betancourt RN
--- NOTE | 2018-03-30 14:29 | GHP ---
DATE OF ADMISSION: 03/30/2018 CHIEF COMPLAINT: Left foot swelling and pain. HISTORY OF PRESENT ILLNESS: The patient is a 47-year-old with history significant for diabetes, HIV disease, and Reece's disease. He has a number of other chronic medical problems as well. He comes in after experiencing increasing swelling and pain on the dorsum of his left foot. He said he cut h is foot on the metal hinge of a gate about a week ago. It looked like a local scratch and was using some antibiotic ointment to put on it throughout the week and did not notice significant pain or tend erness or swelling. He started to developed fevers and night sweats on , Saturday, and y and sometimes getting a fever up to 102. Yesterday, when he looked at his foot, he noted increasin g swelling and pain and some discoloration around the abrasion. Over the course of the next 24 hours , the swelling and pain increased so he opted to come into the emergency room for further evaluation and treatment after. 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 He denies any chest pa in, coughing, shortness of breath. He has had no abdominal symptoms, bowel changes, or urinary sympt oms. He has some chronic joint issues including hip pain that is not significantly changed. REVIEW OF SYSTEMS: A 10-point comprehensive review of systems was done with pertinent positives and negatives present in the HPI. PAST MEDICAL HISTORY: 1. 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 2. Chronic kidney disease, stable. 3. Type 2 diabetes, on insulin. 4. History of DVT with history of protein S deficiency on chronic warfarin therapy. 5. HIV disease with undetectable viral counts followed at [facility]. 6. Dyslipidemia. 7. Hypertension. 8. Meniere's disease. 9. History of migraines. 10. PTSD, uses Ativan as needed. 11. History of MRSA with abdominal wall abscesses about a year and 4 months ago. 12. Osteoarthritis with total hip replacements, will need a revision at the [facility] s oon. 13. Nonepileptic seizures. 14. Sleep apnea, not treated. 15. History of past exposure to syphilis. 16. Chronic pain with chronic narcotic dependency. ALLERGIES: Amlodipine, Celebrex, doxycycline, gabapentin, Lasix, nortriptyline, nonsteroidals due to Coumadin, penicillin, prednisone, Phenergan. MEDICATIONS: Please see med reconciliation list. SOCIAL HISTORY: He currently lives in a longterm facility, [place], but plans on moving to a apartment through [facility] soon. He denies alcohol, tobacco, or illicit drug use. He is not currently sexually active. FAMILY HISTORY: Reviewed and includes hypertension, asthma, strokes, colon cancer, and diabetes. PHYSICAL EXAMINATION: VITAL SIGNS: Temperature 37.2, heart rate 60, blood pressure 157/87, respirat ions 16, he is 95% on room air. IN GENERAL: He is a 47-year-old, overweight man in no distress. He is alert and oriented. Speech is clear and fluent. HEENT: Pupils are equal. Extraocular movement s intact. Sclerae anicteric. Mucous membranes moist. NECK: Supple. HEART: Regular rate and rhyt hm. No murmur, gallop, or rub. LUNGS: Clear bilaterally without wheeze, rhonchi, or rales. ABDOME N: Soft, nontender, nondistended. EXTREMITIES: Right lower extremity with no edema and normal puls es. Left lower extremity with increased edema to just above his ankles with discoloration, purplish in color, and erythema just proximal to an abrasion. No exudates noted. Quite tender to palpation. Normal pulses. NEUROLOGICALLY: He is intact and moves all 4 extremities. Speech is fluent. MUSCU LOSKELETAL: No joint deformities or effusions noted. SKIN: See above. PSYCHIATRIC: Mood is appro priate. LABORATORY DATA: CBC shows normal white count of 5.16. Electrolytes and renal function are within n ormal limits. Glucose is slightly elevated at 171. INR is 1.87. Blood cultures were drawn and are pending. DIAGNOSTICS: A foot x-ray is negative. ASSESSMENT AND PLAN: 1. This is a 47-year-old man with multiple medical issues who presents with increasing swelling, marnie thema, and tenderness on the dorsum of his left foot after sustaining a laceration. He does have his tory of MRSA with risk factors including HIV disease and diabetes. As far as wound healing, plan camilo l be to admit him to the hospital for IV vancomycin and watch his wound closely as it has increased o jaime the last 24 hours. Follow up blood culture results. I did discuss the case in detail with Dr. Reza Silveira who will see him in consultation. 2. Type 2 diabetes, currently on insulin. We will resume his home dose and monitor. Should he need extra insulin, we will provide that as necessary. 3. Human immunodeficiency virus (HIV) disease. Resume his antiretrovirals. 4. Logan's disease. Continue usual doses as he does not appear to be in crisis with a normal bloo d pressure at this time. 5. History of anemia. Stable. 6. History of avascular necrosis, status post hip replacements. He has followup scheduled next week with the [facility] and may need to reschedule that. 7. Chronic kidney disease. Stable. 8. Depression, anxiety and post-traumatic stress disorder (PTSD). Continue usual medications. 9. Chronic pain with chronic narcotic dependency. We will continue his home doses. 10. Hypertension, slightly elevated, likely due to his acute illness. We will monitor and continue his usual medications. 11. History of methicillin-resistant staphylococcus aureus (MRSA). None present within the last yea r but will treat at this time with vancomycin. 12. History of deep vein thrombosis (DVT) with protein S deficiency. Continue warfarin and monitor INRs. /[id number]/MODL
[2018-03-30] MEDS: HYDROCORTISONE 10 MG TAB PO SCH (15:05)
--- NOTE | 2018-03-30 15:22 | PDMN ---
Medical Necessity Medical necessity: Pt meets IP criteria per MD & MCG M-70; est los >2 mn for eval/tx of L foot cellulitis/laceration w/increasing swelling, erythema & tenderness; admit for close monitoring, ID consult & IV abx; hx MRSA, HIV, diabetes, CKD, DVT on AC, HTN & [place]'s disease on Fludrocortisone & Hydrocortisone; per H&P & order 03/30/18
[2018-03-30] MEDS ORDERED: Abacavir/Dolutegravir/Lamivudi [Triumeq Tablet] PO SCH (16:00)
--- NOTE | 2018-03-30 16:05 | PCMIDPN ---
Assessment/Plan: Assessment/Plan: * Fever, rigors, and left foot skin and soft tissue infection: Clinical findings consistent with MRSA skin and soft tissue infection of dorsal aspect of left foot; findings primarily phlegmonous currently with possibility will evolve into drainable abscess while on vancomycin versus resolution while on vancomycin. Will elevate lower extremity on 2 pillows. Begin warm compresses. Contact precautions given high likelihood related to MRSA based on prior history of MRSA skin and soft tissue infection. Will dose of 1.25 g IV q.12 hours given patient developed renal insufficiency while on 1.5 g IV q.12 hours last year. Reassess clinically over time to determine if becomes amenable to incision and drainage. * HIV: Last CD4 count 277 with undetectable viral load in August of 2017. Continue Triumeq daily. * History of MRSA Time spent, greater than 35 min, of which greater than half was spent in education/counseling/coordination of care related to left foot skin and soft tissue infection, discussion of probable etiology being MRSA, and plan of care including use of vancomycin. 03/30/18 16:02 03/30/18 16:04 03/30/18 16:09 Subjective: Patient followed in our office by Dr. Shi for HIV, CD4 count 277 (33%), viral load less than 1 with prior history of MRSA skin and soft tissue infection requiring incision and drainage over abdominal wall in October of last year; patient describes 2 subsequent episodes over the upper extremities in the interim. Currently patient describes developing fever and shaking chills on preceding admission. Several days prior to onset of fever, he had scraped his left foot on a metal gate. Now he has developed a painful erythematous in violaceous lesion over the dorsal aspect of the foot with associated foot edema. Patient notes glycemic control was more difficult with symptoms. I was notified by his nursing facility of the symptoms today advised presentation to emergency department. Past medical/past surgical/medications/allergies all reviewed. Objective: Vital Signs Temp Pulse Resp BP Pulse Ox 36.7 C 62 16 138/92 H 93 03/30/18 15:30 03/30/18 15:30 03/30/18 15:30 03/30/18 15:30 03/30/18 15:30 03/29/18 03/30/18 03/31/18 05:59 05:59 05:59 Intake Total 250 Output Total 400 Balance -150 Laboratory Tests 03/30/18 03/30/18 03/30/18 10:26 10:26 10:26 WBC 5.16 RBC 4.51 Hgb 13.1 L Hct 38.4 L Plt Count 154 Neut % (Auto) 70.2 VBG Lactic Acid 1.3 Creatinine 1.1 - Physical Exam General Appearance: alert, no apparent distress, non-toxic EENT: No scleral icterus, No thrush, No conjunctival petechiae Respiratory: lungs clear, No respiratory distress Cardiac/Chest: regular rate, rhythm, systolic murmur (1/6 right upper sternal border) Extremities: inflammation (Dorsal aspect of left foot with approximately 50 cent piece sized area of erythema with central violaceous hue; tender to palpation with surrounding induration; no expressible purulence or fluctuance; mild surrounding erythema for several cm; warmth and tenderness present; edema of ankle present without irritability with range of motion of ankle) Abdomen: non-tender, other (Multiple striae present), No distended Skin: No embolic lesions Neuro/Psych: oriented x 3 ICD10 Worksheet Patient Problems: Problems Problem Status Onset Abscess of abdominal wall Acute Cellulitis, abdominal wall Acute Chronic anemia Acute Hypokalemia Acute MRSA (methicillin resistant Staphylococcus aureus) Acute ~11/09/16
[2018-03-30] MEDS: DIAZEPAM 5 MG TAB PO SCH ×2 (16:57→21:32)
[2018-03-30] MEDS: INSULIN LISPRO 100 UNIT/ML SC SCH (18:28)
[2018-03-30] MEDS ORDERED: WARFARIN SODIUM 5 MG TAB PO SCH (18:45)
[2018-03-30] MEDS: FAMOTIDINE 20 MG TAB PO SCH (19:59)
[2018-03-30] MEDS: FENOFIBRATE 145 MG TAB PO SCH (20:00)
[2018-03-30] MEDS: METOPROLOL TARTRATE 100 MG TAB PO SCH (20:01)
[2018-03-30] MEDS: INSULIN GLARGINE 100 UNITS/ML SYRINGE SC SCH (20:03)
[2018-03-30] MEDS: [UNRECOGNIZED DRUG - OTHER] PO SCH (20:14)
[2018-03-30] MEDS: ABACAVIR PO SCH (20:14)
[2018-03-30] MEDS: LAMIVUDINE PO SCH (20:14)
[2018-03-30] MEDS: DOLUTEGRAVIR PO SCH (20:14)
[2018-03-31] MEDS: VANCOMYCIN 1.25 GM in NS 250 ML IV SCH ×3 (00:20→23:36)
[2018-03-31] MEDS: oxyCODONE IR 5 MG TAB PO PRN ×4 (02:07→23:36)
[2018-03-31 05:05] LABS: PLATELET COUNT 133 10^3/uL (150-400)
[2018-03-31 05:12] LABS: INR 1.77 (0.83-1.16); PROTIME(PATIENT) 20.7 SEC (12.0-15.0)
[2018-03-31] MEDS: INSULIN GLARGINE 100 UNITS/ML SYRINGE SC SCH ×2 (08:57→21:02)
[2018-03-31] MEDS: CETIRIZINE 10 MG TAB PO SCH (09:15)
[2018-03-31] MEDS: FLUDROCORTISONE ACETATE 0.1 MG TAB PO SCH (09:15)
[2018-03-31] MEDS: CALCIUM CARB W/VIT D 500 MG TAB PO SCH (09:15)
[2018-03-31] MEDS: FAMOTIDINE 20 MG TAB PO SCH ×2 (09:15→21:02)
[2018-03-31] MEDS: HYDROCORTISONE 10 MG TAB PO SCH ×2 (09:16→15:38)
[2018-03-31] MEDS: FERROUS SULFATE 325 MG TAB PO SCH (09:17)
[2018-03-31] MEDS: TAMSULOSIN HCL 0.4 MG CAP PO SCH (09:17)
[2018-03-31] MEDS: CHOLECALCIFEROL VIT D3 1,000 UNITS TAB PO SCH (09:17)
[2018-03-31] MEDS: METOPROLOL TARTRATE 100 MG TAB PO SCH ×2 (09:17→21:01)
[2018-03-31] MEDS: POTASSIUM CL 10 MEQ TAB PO SCH (09:18)
[2018-03-31] MEDS: DIAZEPAM 5 MG TAB PO SCH ×3 (09:18→21:02)
[2018-03-31] MEDS: PRAVASTATIN SODIUM 40 MG TAB PO SCH (09:18)
[2018-03-31] MEDS: LISINOPRIL 10 MG TAB PO SCH (09:18)
[2018-03-31] MEDS: INSULIN LISPRO 100 UNIT/ML SC SCH ×3 (09:21→18:12)
[2018-03-31] MEDS: POLYETHYLENE GLYCOL 3350 17 GM PKT PO SCH (09:21)
--- NOTE | 2018-03-31 10:33 | HOSPPROG ---
Hospitalist Progress Note Assessment/Plan: 47-year-old with multiple medical issues and a history of MRSA comes in with a cellulitis/early abscess on his left dorsum of his foot. Significant tenderness and swelling over the last 24 hr prior to admission, associated with fevers and night sweats. # cellulitis/possible early abscess a man with a history of MRSA. Discussed with Infectious Disease. * Continue Vanco * Watch for signs of abscess formation, today it appears about the same possibly with slightly less swelling. # HIV disease, continue his current medications # [place]'s disease on chronic steroids. He feels his fatigue is related to his [place]'s and wonders if he needs stress dose steroids. However his electrolytes and blood pressure all normal. At this time I would continue his usual home dose and follow him closely. * Continue usual dose of steroids # diabetes, type 2 blood sugars adequately controlled currently continue his home insulin dosages and follow-up blood sugars # hypertension slightly elevated will follow up treat if needed. Patient asymptomatic # dyslipidemia currently on medications including statin and Tricor # history of DVT, on chronic warfarin therapy with slightly subtherapeutic IN R. Will give additional dose today. And have pharmacy follow and adjust medications if needed # chronic pain with chronic narcotic dependency. Have continued his usual home dosages without changes. # multiple other chronic medical issues are all stable. Subjective: Feels a swelling on his left foot is slightly better. Denies any nausea vomiting diarrhea. Feels a little itchy but has not had rash. Objective: Vital Signs Temp Pulse Resp BP Pulse Ox 36.8 C 600 H 16 162/89 H 94 03/31/18 07:35 03/31/18 09:17 03/31/18 07:35 03/31/18 09:18 03/31/18 07:35 Laboratory Results 03/31/18 04:25 03/31/18 04:25 03/30/18 03/31/18 04/01/18 05:59 05:59 05:59 Intake Total 1000 Output Total 1850 Balance -850 PT 20.7 SEC (12.0-15.0) H 03/31/18 04:25 INR 1.77 (0.83-1.16) H 03/31/18 04:25 - Physical Exam Constitutional: no apparent distress, obese Eyes: PERRL, anicteric sclera Ears, Nose, Mouth, Throat: moist mucous membranes Cardiovascular: regular rate and rhythym Respiratory: no respiratory distress Gastrointestinal: normoactive bowel sounds, soft, non-tender abdomen Genitourinary: no bladder fullness Skin: other (Erythema and swelling on the dorsum of his left foot just proximal to a small laceration with some discoloration. No significant change since yesterday.) Neurologic: AAOx3 Psychiatric: interacting appropriately ICD10 Worksheet Patient Problems: Problems Problem Status Onset MRSA (methicillin resistant Staphylococcus aureus) Acute ~11/09/16 Abscess of abdominal wall Acute Cellulitis, abdominal wall Acute Hypokalemia Acute Chronic anemia Acute
[2018-03-31] MEDS ORDERED: WARFARIN SODIUM 5 MG TAB PO SCH (12:00)
[2018-03-31] MEDS: [UNRECOGNIZED DRUG - OTHER] PO SCH (15:40)
[2018-03-31] MEDS: DOLUTEGRAVIR PO SCH (15:40)
[2018-03-31] MEDS: ABACAVIR PO SCH (15:40)
[2018-03-31] MEDS: LAMIVUDINE PO SCH (15:40)
[2018-03-31] MEDS ORDERED: WARFARIN SODIUM 7.5 MG TAB PO ONE (16:00)
--- NOTE | 2018-03-31 19:17 | PCMIDPN ---
Assessment/Plan: Assessment/Plan: * Fever, rigors, and left foot skin and soft tissue infection: Clinical findings consistent with MRSA skin and soft tissue infection of dorsal aspect of left foot. Query if he may have had small hematoma after traumatic injury to foot. Small amount of palpable fluid but not clear amenable to drainage at this point. Will reassess in a.m. to determine if incision and drainage might be feasible versus possibility of ultrasound to assess for small focal fluid collection. Continue vancomycin. Current trough appropriate for skin and soft tissue infection. Follow creatinine has had renal insufficiency with previous vancomycin receipt. * HIV: Last CD4 count 277 with undetectable viral load in August of 2017. Continue Triumeq daily. * History of MRSA 03/31/18 19:14 Subjective: Foot feels slightly less painful. Objective: Vital Signs Temp Pulse Resp BP Pulse Ox 36.7 C 59 L 16 127/80 H 94 03/31/18 15:47 03/31/18 15:47 03/31/18 15:47 03/31/18 15:47 03/31/18 15:47 Laboratory Results 03/31/18 04:25 03/31/18 04:25 03/30/18 03/31/18 04/01/18 05:59 05:59 05:59 Intake Total 1000 1500 Output Total 1850 1400 Balance -850 100 Vancomycin # 2 Triumeq daily Laboratory Tests 03/31/18 12:04 Vancomycin Trough 7.1 - Physical Exam General Appearance: alert, no apparent distress EENT: No scleral icterus, No thrush Respiratory: lungs clear, No respiratory distress Cardiac/Chest: regular rate, rhythm Extremities: inflammation (Dorsal aspect of left foot relatively unchanged versus exam yesterday; central violaceous lesion approximately 3 cm in diameter with surrounding erythema; slight fluid filled quality underlying violaceous area; no expressible purulence; tender to palpation) Lymphatic: other (No lymphangitis left thigh) ICD10 Worksheet Patient Problems: Problems Problem Status Onset Abscess of abdominal wall Acute Cellulitis, abdominal wall Acute Chronic anemia Acute Hypokalemia Acute MRSA (methicillin resistant Staphylococcus aureus) Acute ~11/09/16
[2018-03-31] MEDS: FENOFIBRATE 145 MG TAB PO SCH (21:02)
[2018-04-01 05:19] LABS: INR 1.82 (0.83-1.16); PROTIME(PATIENT) 21.2 SEC (12.0-15.0)
[2018-04-01] MEDS: oxyCODONE IR 5 MG TAB PO PRN ×3 (06:04→18:10)
[2018-04-01] MEDS: POLYETHYLENE GLYCOL 3350 17 GM PKT PO SCH (08:27)
[2018-04-01] MEDS: FAMOTIDINE 20 MG TAB PO SCH ×2 (08:27→21:07)
[2018-04-01] MEDS: TAMSULOSIN HCL 0.4 MG CAP PO SCH (08:27)
[2018-04-01] MEDS: DIAZEPAM 5 MG TAB PO SCH ×3 (08:28→21:08)
[2018-04-01] MEDS: PRAVASTATIN SODIUM 40 MG TAB PO SCH (08:28)
[2018-04-01] MEDS: CETIRIZINE 10 MG TAB PO SCH (08:29)
[2018-04-01] MEDS: METOPROLOL TARTRATE 100 MG TAB PO SCH ×2 (08:29→21:07)
[2018-04-01] MEDS: POTASSIUM CL 10 MEQ TAB PO SCH (08:30)
[2018-04-01] MEDS: LISINOPRIL 10 MG TAB PO SCH (08:30)
[2018-04-01] MEDS: FERROUS SULFATE 325 MG TAB PO SCH (08:30)
[2018-04-01] MEDS: HYDROCORTISONE 10 MG TAB PO SCH ×2 (08:31→15:58)
[2018-04-01] MEDS: FLUDROCORTISONE ACETATE 0.1 MG TAB PO SCH (08:31)
[2018-04-01] MEDS: CHOLECALCIFEROL VIT D3 1,000 UNITS TAB PO SCH (08:31)
[2018-04-01] MEDS: CALCIUM CARB W/VIT D 500 MG TAB PO SCH (08:32)
[2018-04-01] MEDS: INSULIN GLARGINE 100 UNITS/ML SYRINGE SC SCH ×2 (08:35→21:08)
[2018-04-01] MEDS: INSULIN LISPRO 100 UNIT/ML SC SCH ×3 (08:47→18:22)
--- NOTE | 2018-04-01 09:28 | PCMIDPN ---
Assessment/Plan: Assessment/Plan: * Fever, rigors, and left foot skin and soft tissue infection: Slow clinical improvement. Erythema largely resolved with residual violaceous changes present ; may represent hematoma after injury on gate verses small abscess versus superinfected hematoma. Will obtain ultrasound of area to see if fluid present for aspiration. Clinically does not appear will require incision and drainage. Continue vancomycin with possible transition to Bactrim tomorrow to complete course of therapy. Creatinine stable on vancomycin. * HIV: Last CD4 count 277 with undetectable viral load in August of 2017. Continue Triumeq daily. * History of MRSA: See discussion above. 04/01/18 09:25 Subjective: Patient with decreasing left foot pain and swelling. Objective: Vital Signs Temp Pulse Resp BP Pulse Ox 36.8 C 55 L 16 157/92 H 96 04/01/18 08:05 04/01/18 08:05 04/01/18 08:05 04/01/18 08:05 04/01/18 08:05 Laboratory Results 03/31/18 04:25 04/01/18 04:25 03/31/18 04/01/18 04/02/18 05:59 05:59 05:59 Intake Total 1000 1800 Output Total 1850 1400 Balance -850 400 Vancomycin # 3 Blood cultures x2 no growth - Physical Exam General Appearance: alert, no apparent distress EENT: No scleral icterus, No thrush Respiratory: lungs clear, No respiratory distress Cardiac/Chest: regular rate, rhythm Extremities: inflammation (Erythema around violaceous lesion on left dorsal foot has resolved; tenderness remains over violaceous region with question of underlying fluid; edema decreased) Abdomen: non-tender, No distended Skin: No rash ICD10 Worksheet Patient Problems: Problems Problem Status Onset Abscess of abdominal wall Acute Cellulitis, abdominal wall Acute Chronic anemia Acute Hypokalemia Acute MRSA (methicillin resistant Staphylococcus aureus) Acute ~11/09/16
--- NOTE | 2018-04-01 10:51 | HOSPPROG ---
Hospitalist Progress Note Assessment/Plan: 47-year-old with multiple medical issues and a history of MRSA comes in with a cellulitis/early abscess on his left dorsum of his foot. Significant tenderness and swelling over the last 24 hr prior to admission, associated with fevers and night sweats. # cellulitis/possible early abscess a man with a history of MRSA. Reviewed ID notes * Erythema improved * US per ID, Asp if abscess present for Culture. * Continue Vanco, likely transition to bactrim in am. * Watch for signs of abscess formation, today it appears about the same possibly with slightly less swelling. # HIV disease, continue his current medications # [place]'s disease on chronic steroids. He feels his fatigue is related to his [place]'s and wonders if he needs stress dose steroids. However his electrolytes and blood pressure all normal. At this time I would continue his usual home dose and follow him closely. * Continue usual dose of steroids # diabetes, type 2 blood sugars adequately controlled currently continue his home insulin dosages and follow-up blood sugars # hypertension slightly elevated will follow up treat if needed. Patient asymptomatic # dyslipidemia currently on medications including statin and Tricor # history of DVT, on chronic warfarin therapy with slightly subtherapeutic IN R. Will give additional dose today. And have pharmacy follow and adjust medications if needed # nephrolithiasis. on flomax since passed stones. Will hold for now and have him follow up with his urologist to assess on going need for flomax. # chronic pain with chronic narcotic dependency. Have continued his usual home dosages without changes. # multiple other chronic medical issues are all stable. Subjective: Pt without new complaints, would like to stop flomax, since on it for renal stones. He states he has passed all the stones. Objective: Vital Signs Temp Pulse Resp BP Pulse Ox 36.8 C 55 L 16 157/92 H 96 04/01/18 08:05 04/01/18 08:05 04/01/18 08:05 04/01/18 08:05 04/01/18 08:05 Laboratory Results 03/31/18 04:25 04/01/18 04:25 03/31/18 04/01/18 04/02/18 05:59 05:59 05:59 Intake Total 1000 1800 Output Total 1850 1400 300 Balance -850 400 -300 PT 21.2 SEC (12.0-15.0) H 04/01/18 04:25 INR 1.82 (0.83-1.16) H 04/01/18 04:25 - Physical Exam Constitutional: not in pain Eyes: PERRL Cardiovascular: regular rate and rhythym Respiratory: no respiratory distress, no rales or rhonchi Gastrointestinal: normoactive bowel sounds Genitourinary: No ball in urethra Skin: warm, other (decreased erythema and swelling left foot) Musculoskeletal: abnormal gait Neurologic: AAOx3 Psychiatric: interacting appropriately ICD10 Worksheet Patient Problems: Problems Problem Status Onset Abscess of abdominal wall Acute Cellulitis, abdominal wall Acute Chronic anemia Acute Hypokalemia Acute MRSA (methicillin resistant Staphylococcus aureus) Acute ~11/09/16
[2018-04-01] MEDS ORDERED: WARFARIN SODIUM 7.5 MG TAB PO SCH (12:00)
[2018-04-01] MEDS: VANCOMYCIN 1.25 GM in NS 250 ML IV SCH (12:38)
--- NOTE | 2018-04-01 12:59 | ASMTCMCOM ---
CM Note CM Note Notes: CM met w/ pt for dispo planning. Pt is agreeable to going back to [facility] despite his distaste for the facility. Pt reports that he obtained a housing voucher through [employer] and has a apartment application pending. Pt reports that he has been trying to get into [facility] for 2 years without any luck. Pt may need ivabx. CM updated Dayana at [facility]. CM to follow. Plan: [facility] Date Signed: 04/01/2018 12:40 PM Electronically Signed By:SRINIVASAN Tinajero
--- NOTE | 2018-04-01 15:28 | ASMTCMCOM ---
CM Note CM Note Notes: Pt left a msg on the case management line explaining his concerns about going back to [facility]. Pt does not feel confident about their wound care nurses. Pt is afraid that he'll need to have an amputation. CM made a referral to [facility] and [facility]. Both are going to stop by to talk to him. DELMA obtained the phone number for Emy, director employee safety and health at [facility] with [facility]. Her number is [phone]. Pt reports that on 04/22 [facility] plans on discharging him from their facility. CM has a call out to Jo-Ann at [facility]. CM to follow. Plan: TBD Date Signed: 04/01/2018 03:28 PM Electronically Signed By:SRINIVASAN Tinajero
--- NOTE | 2018-04-01 15:56 | ASMTCMCOM ---
CM Note CM Note Notes: CM spoke to Emy at [employer]. She reports that she is in contact w/ pt on a daily basis. She plans on continuing to work w/ him. Tae from [facility] stopped by to meet w/ pt. DELMA to follow. Date Signed: 04/01/2018 03:56 PM Electronically Signed By:SRINIVASAN Tinajero
[2018-04-01] MEDS: LAMIVUDINE PO SCH (15:57)
[2018-04-01] MEDS: DOLUTEGRAVIR PO SCH (15:57)
[2018-04-01] MEDS: ABACAVIR PO SCH (15:57)
[2018-04-01] MEDS: [UNRECOGNIZED DRUG - OTHER] PO SCH (15:57)
[2018-04-01] MEDS ORDERED: WARFARIN SODIUM 7.5 MG TAB PO ONE (16:00)
--- NOTE | 2018-04-01 16:48 | ASMTCMCOM ---
CM Note DELMA Note Notes: Per Tae, at [facility]. Pt will need a new ultc-100. Cm spoke to Jo-Ann at [facility] and confirmed that pt has a termination date of 04/22 because at the time the letter was written pt no longer meets LTC requirements. CM started ULTC-100. Date Signed: 04/01/2018 04:48 PM Electronically Signed By:SRINIVASAN Tinajero
[2018-04-01] MEDS: FENOFIBRATE 145 MG TAB PO SCH (21:07)
[2018-04-02] MEDS: oxyCODONE IR 5 MG TAB PO PRN ×2 (00:14→12:24)
[2018-04-02] MEDS: VANCOMYCIN 1.25 GM in NS 250 ML IV SCH (00:16)
[2018-04-02 05:27] LABS: INR 1.98 (0.83-1.16); PROTIME(PATIENT) 22.6 SEC (12.0-15.0)
[2018-04-02 07:26] VITALS: BP 143/88
[2018-04-02] MEDS: HYDROCORTISONE 10 MG TAB PO SCH (07:38)
--- NOTE | 2018-04-02 08:14 | HOSPPROG ---
Hospitalist Progress Note Assessment/Plan: #Left foot cellulitis: blood cultures negative #HIV: home meds #h/o MRSA #Sharp's: home steroids #Controlled DM2: glargine, SSI #HTN: #HLD: h/o DVT: INR just below 2 #Chronic pain with opioid dependency Objective: Vital Signs Temp Pulse Resp BP Pulse Ox 36.6 C 55 L 12 143/88 H 96 04/02/18 07:23 04/02/18 07:23 04/02/18 07:23 04/02/18 07:23 04/02/18 07:23 Laboratory Results 03/31/18 04:25 04/02/18 04:23 04/01/18 04/02/18 04/03/18 05:59 05:59 05:59 Intake Total 1800 250 Output Total 1400 300 Balance 400 -50 PT 22.6 SEC (12.0-15.0) H 04/02/18 04:23 INR 1.98 (0.83-1.16) H 04/02/18 04:23 ICD10 Worksheet Patient Problems: Problems Problem Status Onset Abscess of abdominal wall Acute Cellulitis, abdominal wall Acute Chronic anemia Acute Hypokalemia Acute MRSA (methicillin resistant Staphylococcus aureus) Acute ~11/09/16
[2018-04-02] MEDS: CHOLECALCIFEROL VIT D3 1,000 UNITS TAB PO SCH (09:22)
[2018-04-02] MEDS: FAMOTIDINE 20 MG TAB PO SCH (09:22)
[2018-04-02] MEDS: CETIRIZINE 10 MG TAB PO SCH (09:23)
[2018-04-02] MEDS: DIAZEPAM 5 MG TAB PO SCH (09:23)
[2018-04-02] MEDS: FLUDROCORTISONE ACETATE 0.1 MG TAB PO SCH (09:24)
[2018-04-02] MEDS: CALCIUM CARB W/VIT D 500 MG TAB PO SCH (09:24)
[2018-04-02] MEDS: FERROUS SULFATE 325 MG TAB PO SCH (09:24)
[2018-04-02] MEDS: INSULIN GLARGINE 100 UNITS/ML SYRINGE SC SCH (09:25)
[2018-04-02] MEDS: METOPROLOL TARTRATE 100 MG TAB PO SCH (09:42)
[2018-04-02] MEDS: POTASSIUM CL 10 MEQ TAB PO SCH (09:42)
[2018-04-02] MEDS: PRAVASTATIN SODIUM 40 MG TAB PO SCH (09:42)
[2018-04-02] MEDS: LISINOPRIL 10 MG TAB PO SCH (09:42)
[2018-04-02] MEDS: POLYETHYLENE GLYCOL 3350 17 GM PKT PO SCH (09:43)
[2018-04-02] MEDS: INSULIN LISPRO 100 UNIT/ML SC SCH ×2 (09:43→13:47)
--- NOTE | 2018-04-02 10:22 | PDIAF ---
- Diagnosis Diagnosis: foot cellulits Code Status: Full Code - Medication Management Discharge Medications: Medications to Continue on Transfer Acetaminophen [Tylenol 325mg (*)] 650 mg PO Q4HRS PRN 11/05/16 [Last Taken Unknown] Albuterol [Proventil Inhaler HFA (*)] 2 puffs IH Q4 PRN 11/05/16 [Last Taken Unknown] Albuterol [Proventil Neb] 3 ml IH Q4HRS PRN 11/05/16 [Last Taken Unknown] Bisacodyl [Dulcolax] 10 mg RC DAILY PRN 11/05/16 [Last Taken Unknown] Cholecalciferol Vit D3 [Vitamin D3 (*)] 1,000 units PO DAILY 11/05/16 [Last Taken Unknown] Dexamethasone [Decadron 4mg/ml inj (*)] 4 mg IM DAILY PRN 11/05/16 [Last Taken Unknown] Diazepam [DIASTAT ACUDIAL] 20 mg RC DAILY PRN 11/05/16 [Last Taken Unknown] Diazepam [Valium 5 MG (*)] 5 mg PO TID 11/05/16 [Last Taken 11/05/16 12:00] FLUDROCORTISONE ACETATE 0.1 mg PO DAILY 11/05/16 [Last Taken Unknown] Fenofibrate [Lofibra] 160 mg PO HS 11/05/16 [Last Taken Unknown] Ferrous Sulfate [Ferrous Sulf 325 MG (*)] 325 mg PO DAILY 11/05/16 [Last Taken 11/05/16] Hydrocortisone [Cortef] 5 mg PO DAILY@1500 11/05/16 [Last Taken Unknown] Hydrocortisone [Cortef] 15 mg PO DAILY@0800 11/05/16 [Last Taken 11/05/16] Insulin Aspart [novoLOG] 0 unit SQ TIDMEAL 11/05/16 [Last Taken Unknown] Cumming-3 Fatty Acids [Fish Oil 1000 mg (*)] 1,000 mg PO BID 11/05/16 [Last Taken Unknown] Ondansetron Odt [Zofran Odt 4 mg (*)] 8 mg PO BID PRN 11/05/16 [Last Taken Unknown] Polyethylene Glycol 3350 [Miralax 17 gm (*)] 17 gm PO DAILY 11/05/16 [Last Taken Unknown] Potassium Cl [Klor-Con 10 meq (RX)] 10 meq PO DAILY 11/05/16 [Last Taken Unknown ] Pravastatin Sodium 80 mg PO DAILY 11/05/16 [Last Taken 11/04/16] SUMAtriptan [Imitrex 50 MG (*)] 100 mg PO DAILY PRN 11/05/16 [Last Taken Unknown ] Tamsulosin HCl [Flomax 0.4 MG (*)] 0.4 mg PO DAILY 11/05/16 [Last Taken Unknown] Warfarin Sodium [Coumadin 7.5MG (*)] 7.5 mg PO TUTHFRSA@1200 11/05/16 [Last Taken Unknown] oxyCODONE IR [Oxycodone Ir (*)] 20 mg PO Q6 PRN 11/05/16 [Last Taken Unknown] Calcium Carb W/Vit D [Calcium Carb W/Vit D 500/200 (*)] 500 mg PO DAILY@0900 tab 11/13/16 [Last Taken Unknown] Abacavir/Dolutegravir/Lamivudi [Triumeq Tablet] 1 each PO DAILY@1600 03/30/18 [ Last Taken Unknown] Dextrose Oral Gel [Glucose Gel (*)] 15 gm PO ONCE PRN 03/30/18 [Last Taken Unknown] Famotidine [Pepcid 20 MG (*)] 20 mg PO BID 03/30/18 [Last Taken Unknown] Glucagon,Human Recombinant [Glucagon Emergency Kit] 1 mg IJ PRN PRN 03/30/18 [ Last Taken Unknown] Insulin Detemir [Levemir] 45 unit SQ BID 03/30/18 [Last Taken Unknown] Lisinopril [Zestril 10 mg (*)] 10 mg PO DAILY 03/30/18 [Last Taken Unknown] Loratadine 10 mg PO DAILY 03/30/18 [Last Taken Unknown] Metoprolol Tartrate [Lopressor 100 mg (*)] 100 mg PO BID 03/30/18 [Last Taken Unknown] Nitroglycerin [Nitrostat 0.4 mg (*)] 0.4 mg SL Q5M PRN 03/30/18 [Last Taken Unknown] Phenylephrine/Shk Lv/Mo/Pet,Wh [Preparation H Oint] 1 cori RI Q6 PRN 03/30/18 [ Last Taken Unknown] Vaporub 1 cori TP Q4 PRN 03/30/18 [Last Taken Unknown] Warfarin Sodium [Coumadin 5MG (*)] 5 mg PO SUMOWE@1200 03/30/18 [Last Taken Unknown] guaiFENesin [Guaifenesin] 200 mg PO Q4 PRN 03/30/18 [Last Taken Unknown] guaiFENesin [Mucinex 600 MG (*)] 600 mg PO BID PRN 03/30/18 [Last Taken Unknown] hydrOXYzine HCL [Vistaril 10MG (RX)] 10 mg PO Q8 PRN 03/30/18 [Last Taken Unknown] Sulfamethox/Tmp 800/160 mg [Bactrim Ds] 1 tab PO BID #10 tab 04/02/18 [Last Taken Unknown] Discharge Medications: Refer to the Discharge Home Medication list for PRN reason. - Orders Services needed: Registered Nurse, Master Wet Trimmer, Physical Therapy, Occupational Therapy Isolation Type: Contact Isolation Diet Texture: Regular Texture Diet Additional Instructions: 1. Elevate foot. Apply warm washcloth compresses 2. Keep foot clean and dry - Follow Up Care Current Providers and Referrals: Hannha De La Rosa NP [Certified Nurse Practioner] - 04/08/18 3:15 pm Patient,NotPresent [Unknown] - As per Instructions Sharon Shi MD [Medical Doctor] - follow up in 1 week
[2018-04-02] MEDS ORDERED: SULFAMETHOX/TMP 800/160 MG 1 TAB PO ONE (10:27)
--- NOTE | 2018-04-02 10:50 | GDS ---
PRIMARY INFECTIOUS DISEASE DOCTOR: Dr. Sharon Shi. HISTORY OF PRESENT ILLNESS: A 47-year-old male with HIV, diabetes, [place]'s, presenting with swelling and pain on the dorsum of his left foot. He cut it on a metal hinge of a gate a week ago. It looked like a scratch originally. He was using antibiotic ointment but noted significant pain and swelling. He developed fevers and sweats, thus presented to the emergency room. HOSPITAL COURSE BY PROBLEM: 1. Left foot soft tissue infection: history of MRSA, thus was treated with IV vancomycin. Transition to Bactrim Double Strength for 5 days. Elevate the foot and apply warm compresses. 2. HIV. Continue home medications. 3. History of MRSA. Again, will treat with Bactrim as stated above. 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 5. Controlled diabetes type 2. Continue Levemir and sliding scale insulin. 6. Hypertension. Resume home medications. 7. Hyperlipidemia. Statin. 8. History of a DVT. INR was subtherapeutic. Today is 1.98. Will resume his home dose at discharge. 9. Chronic pain with opioid dependency. Resume home medications. Continue bowel regimen. 10. Migraines. Imitrex. 11. Social issues. He is currently living at [facility] but is being discharged from the facility on the . Dr. Silveira will have his social worker school team contact the patient for assistance. 12. Patient is stable for discharge. NEW MEDICATIONS: Bactrim Double Strength b.i.d. for 5 days. FOLLOWUP: Dr. Patel next week. PHYSICAL EXAMINATION: VITAL SIGNS: Today, temperature 36.6, blood pressure 143 /80, heart rate in the 50s to 60s, respirations 12, 96% on room air. GENERAL: Well appearing in no acute distress. HEENT: PERRLA. Moist mucous membranes. CV: Regular rate and rhythm. No murmurs, gallops, or rubs. LUNGS: Clear. ABDOMEN: Soft, nontender, and nondistended. Positive bowel sounds. : No Gatica. MUSCULOSKELETAL: Left dorsal infection with a small hematoma. Looks like blood. Soft, mildly tender. No surrounding erythema or warmth. TIME SPENT ON DISCHARGE: Greater than 30 minutes discussing followup plan with patient and discussing with Dr. Silveira. /[id number]/MODL MTDD
--- NOTE | 2018-04-02 11:37 | PCMIDPN ---
Assessment/Plan: Assessment/Plan: * Fever, rigors, and left foot skin and soft tissue infection: Foot continues to show clinical improvement. Ultrasound did not show drainable fluid collection - suspect some changes due to phlegmon and/or hematoma after laceration. Blood cultures remain negative. Given clinical improvement, will transition to Bactrim DS twice daily x5 days. Will need repeat creatinine at close of therapy based on prior history of renal insufficiency; creatinine has been stable over last 2 days at 1.0. * HIV: Last CD4 count 277 with undetectable viral load in August of 2017. Continue Triumeq daily. Have asked our school social worker to assist with patient's ongoing housing concerns. * History of MRSA: See discussion above. 04/02/18 11:34 04/02/18 11:36 Subjective: Patient with less left foot pain. Remains concerned about housing circumstances. Objective: Vital Signs Temp Pulse Resp BP Pulse Ox 36.6 C 55 L 12 143/88 H 96 04/02/18 07:23 04/02/18 07:23 04/02/18 07:23 04/02/18 07:23 04/02/18 07:23 Laboratory Results 03/31/18 04:25 04/02/18 04:23 04/01/18 04/02/18 04/03/18 05:59 05:59 05:59 Intake Total 1800 250 Output Total 1400 300 Balance 400 -50 Vancomycin #4 Blood cultures x2 no growth - Physical Exam General Appearance: alert, no apparent distress Extremities: inflammation (Dorsal aspect of left foot with significant improvement with no residual erythema; violaceous lesion centrally gradually decreasing in size and tenderness; no fluctuance noted) Lymphatic: other (No lymphangitis left lower extremity) - Time Spent With Patient Time Spent with Patient: greater than 25 minutes Time Spent with Patient: Greater than 25 minutes spent on this patients care, greater than 50% of time spent counseling, educating, and coordinating care regarding the above mentioned plan. ICD10 Worksheet Patient Problems: Problems Problem Status Onset Abscess of abdominal wall Acute Cellulitis, abdominal wall Acute Chronic anemia Acute Hypokalemia Acute MRSA (methicillin resistant Staphylococcus aureus) Acute ~11/09/16
--- NOTE | 2018-04-02 14:07 | ASMTDCNOTE ---
Case Management Discharge Discharge Order Complete? Answers: Yes Patient to Obtain Answers: Other Notes: [facility] Medications Transportation Arranged Answers: Other Notes: [facility] will Pick (Date 04/02/2018 03:30 PM & Time) Faxed Final Orders Answers: Yes Agency/Facility Transfer Answers: Yes Report Printed & Faxed to Receiving Agency Discharge Comments Notes: Pt being d/fern to [facility] They will metal pickling equipment operator at 3:30PM. All documents sent via [facility]. Date Signed: 04/02/2018 02:06 PM Electronically Signed By:Seema River
[2018-04-02] MEDS ORDERED: WARFARIN SODIUM 5 MG TAB PO ONE (16:00)
--- NOTE | 2018-04-03 15:16 | ASDISCHSUM ---
Discharge Information Plan Status:SNF Medically Cleared to Leave: Discharge Date:04/02/2018 03:32 PM CM D/C Disposition:Retirement Facility ADT D/C Disposition:Retirement Facility Projected Discharge Date:03/31/2018 11:00 AM Transportation at D/C:Wheelchair Van Discharge Delay Reason: Follow-Up Date:03/31/2018 11:00 AM Discharge Slot: Final Diagnosis: Placement Information Referral Type:*[facility]/SNF Referral ID:[id number] Provider Name:[facility] Address 1:[address] [facility] Address 2: City:[place] Selection Factors: State:[place] Patient Contact Information Contact Name:ELVA Relationship:Other Address:[address] Work Phone: [facility]:[place] Alternate Phone: State/Zip Code:[place] [address] Email: Financial Information Financial Class:Medicaid Primary Plan Desc:MEDICAID [facility] Primary Plan Number:[id number] Secondary Plan Desc: Secondary Plan Number: Assessment Information [facility] CM Progress Note CM Note CM Note Notes: Pt admtd for left foot cellulitis. Pt has a hx of MRSA, DM, HIV and Reece's disease. Pt lives at [facility] ([phone]) in [place]. CM called and notified staff of pt's admission. Pt's PCP is Dr Ana Plasencia and he is also followed by Dr Sharon Shi at the [facility]. Anticipate pt will DC back to [facility] when stable. CM to follow. Date Signed: 03/30/2018 02:06 PM Electronically Signed By:Sofi Betancourt RN LACE LACE Acuity / Level of Answers: Yes Care: Did the patient have an inpatient admission? Comorbidities - select Answers: Chronic pulmonary disease all that apply Diabetes (uncontrolled or controlled) Opioid dependence / Chronic pain Other Notes: Asthma, HTN, DVT, HIV, Add mauri's disease, seizure d/o, hernia repair, ort ho surgeries, brain surger y # of Emergency department Answers: 1-2 visits in the last 6 months Score: 12 Date Signed: 03/30/2018 02:11 PM Electronically Signed By:Sofi Betancourt RN [facility] DELMA Progress Note CM Note CM Note Notes: CM met w/ pt for dispo planning. Pt is agreeable to going back to [facility] despite his distaste for the facility. Pt reports that he obtained a housing voucher through [employer] and has a apartment application pending. Pt reports that he has been trying to get into [facility] for 2 years without any luck. Pt may need ivabx. CM updated Dayana at [facility]. CM to follow. Plan: [facility] Date Signed: 04/01/2018 12:40 PM Electronically Signed By:SRINIVASAN Tinajero [facility] CM Progress Note CM Note CM Note Notes: Pt left a msg on the case management line explaining his concerns about going back to [facility]. Pt does not feel confident about their wound care nurses. Pt is afraid that he'll need to have an amputation. CM made a referral to [facility] and [facility]. Both are going to stop by to talk to him. DELMA obtained the phone number for Emy, surveillance director at [facility] with [facility]. Her number is [phone]. Pt reports that on 04/22 [facility] plans on discharging him from their facility. CM has a call out to Jo-Ann at [facility]. CM to follow. Plan: TBD Date Signed: 04/01/2018 03:28 PM Electronically Signed By:SRINIVASAN Tinajero [facility] DELMA Progress Note DELMA Note DELMA Note Notes: CM spoke to Emy at [facility]. She reports that she is in contact w/ pt on a daily basis. She plans on continuing to work w/ him. Tae from [facility] stopped by to meet w/ pt. CM to follow. Date Signed: 04/01/2018 03:56 PM Electronically Signed By:SRINIVASAN Tinajero [facility] DELMA Progress Note DELMA Note DELMA Note Notes: Per Tae, at [facility]. Pt will need a new ultc-100. Cm spoke to Jo-Ann at [facility] and confirmed that pt has a termination date of 04/22 because at the time the letter was written pt no longer meets LT requirements. DELMA started ULTC-100. Date Signed: 04/01/2018 04:48 PM Electronically Signed By:SRINIVASAN Tinajero Case Management Discharge Plan Note Case Management Discharge Discharge Order Complete? Answers: Yes Patient to Obtain Answers: Other Notes: [facility] Transportation Arranged Answers: Other Notes: [facility] care Transport will Pick (Date 04/02/2018 03:30 PM & Time) Faxed Final Orders Answers: Yes Agency/Facility Transfer Answers: Yes Report Printed & Faxed to Receiving Agency Discharge Comments Notes: Pt being d/fern to [facility] They will garbage pick up man at 3:30PM. All documents sent via [employer]. Date Signed: 04/02/2018 02:06 PM Electronically Signed By:Seema River Intervention Information
== END 2018-04-02 15:32 | DRG 383 ==
LOC: EDUNIT# → F3E 12:21
PROVIDERS: ADMIT Internal Medicine; ATTEND Internal Medicine
DX: L03.116 Cellulitis of left lower limb (principal); E11.69 Type 2 diabetes mellitus with other specified complication; E27.1 Primary adrenocortical insufficiency; D68.59 Other primary thrombophilia; G89.29 Other chronic pain; F11.20 Opioid dependence, uncomplicated; G40.909 Epilepsy, unspecified, not intractable, without status epilepticus; J45.909 Unspecified asthma, uncomplicated; H81.09 Meniere's disease, unspecified ear; F43.10 Post-traumatic stress disorder, unspecified; I10 Essential (primary) hypertension; E78.5 Hyperlipidemia, unspecified; Z21 Asymptomatic human immunodeficiency virus [HIV] infection status; Z86.718 Personal history of other venous thrombosis and embolism; Z86.14 Personal history of Methicillin resistant Staphylococcus aureus infection; Z79.52 Long term (current) use of systemic steroids; Z79.4 Long term (current) use of insulin; Z79.01 Long term (current) use of anticoagulants; Z96.643 Presence of artificial hip joint, bilateral
CPT/HCPCS: 96374; 97116-GP; 97162-GP; J1815; J3370